=== PATIENT | female | born 1960 | race Caucasian/White ===

== ENCOUNTER → 2017-05-31 | Outpatient (CLI) | payer OTHER ==
--- NOTE | 2017-05-31 14:19 | CTL ---
EXAMINATION TYPE: CT Low Dose Lung DATE OF EXAM ORDERED: 05/31/2017 HISTORY: 57-year-old female personal history of tobacco use. Lung cancer screening CT DLP: [address] CTDI: 3.1 mGy Automated exposure control for dose reduction was used. SCREENING VISIT: Baseline COMPARISON: None TECHNIQUE: Low dose computed tomography scan was performed through the chest at 1 mm thick sections a nd reconstructed images in the coronal plane at 1 mm thick sections. Additional sagittal reconstructi ons. CT DIAGNOSTIC QUALITY: Satisfactory FINDINGS: Heart is normal size without pericardial effusion. Aorta is normal caliber with conventional arch vessel branching anatomy. Calcified subcarinal and left hilar lymph nodes compatible with prior granulomatous disease. No thora cic lymphadenopathy by CT size criteria. Mild diffuse bronchial wall thickening. No consolidation or pleural effusion. Calcified granuloma peripheral left midlung. No suspicious pulmonary nodule or mass. Strandy atelecta sis or scarring at the inferior lingula. Visualized upper abdomen show some calcified granulomas in the spleen. Bones: No osseous destructive process. IMPRESSION: 1. Lung RADS 1 - negative; no suspicious pulmonary nodules. 2. Prior granulomatous disease. 3. Mild diffuse bronchial wall thickening suggests bronchitis or chronic asthma. RECOMMENDATIONS: 1. Continue with annual LDCT lung cancer screening. 2. Smoking cessation.
== END | disposition home or self-care (01) ==
LOC: RADCTMAIN 13:25
PROVIDERS: ATTEND Internal Medicine Hematology & Oncology
DX: Z12.2 Encounter for screening for malignant neoplasm of respiratory organs (principal); Z87.891 Personal history of nicotine dependence

== ENCOUNTER → 2018-02-26 | Outpatient (CLI) | payer OTHER ==
[2018-02-26 13:50] LABS: Albumin 4.2 g/dL (3.5-5.0); Bilirubin, Delta 0.2 mg/dL (0.0-0.2); Bilirubin,Unconjugated 0.3 mg/dL (0.0-1.1); Total Bilirubin 0.5 mg/dL (0.2-1.3)
== END ==
LOC: LABWHC1 12:10
PROVIDERS: ATTEND Internal Medicine Cardiovascular Disease
DX: E78.5 Hyperlipidemia, unspecified (principal)
CPT/HCPCS: 36415; 80061; 80076

== ENCOUNTER → 2020-11-16 | Outpatient (CLI) | payer OTHER ==
--- NOTE | 2020-11-16 15:31 | XR ---
EXAMINATION TYPE: XR cervical spine comp DATE OF EXAM: 11/16/2020 COMPARISON: NONE HISTORY: Pain TECHNIQUE: Four views are submitted. FINDINGS: The odontoid is intact. There are no compression deformities. The prevertebral soft tissue structur es are within normal limits. Diffuse osteopenia. Facet arthropathy seen in the degenerative change C 5-C6. Alignment is only demonstrated to C5-C6. Soft tissue artifact obscures remaining portion. IMPRESSION: 1. Limited exam as discussed above demonstrates degenerative change C5-C6..
--- NOTE | 2020-11-16 15:34 | XR ---
EXAMINATION TYPE: XR shoulder complete LT DATE OF EXAM: 11/16/2020 COMPARISON: NONE HISTORY: Pain TECHNIQUE: Three views are submitted. FINDINGS: The osseous structures are intact. There is no acute fracture or dislocation. AC joint arthropathy. Calcified nodule in the left upper lobe. Calcified lymph nodes suspected in the left hilum. IMPRESSION: 1. AC joint arthropathy. 2. Left upper lobe granuloma with suspected left hilar lymph nodes.
== END | disposition home or self-care (01) ==
LOC: RADXRMAIN 14:59
PROVIDERS: ATTEND Family Medicine
DX: M13.812 Other specified arthritis, left shoulder (principal); M50.322 Other cervical disc degeneration at C5-C6 level
CPT/HCPCS: 72050

== ENCOUNTER → 2021-01-10 | Outpatient (CLI) | payer OTHER ==
--- NOTE | 2021-01-12 21:52 | CT ---
EXAMINATION TYPE: CT chest w con DATE OF EXAM: 01/10/2021 COMPARISON: 05/31/2017 HISTORY: 60-year-old female abnormal CXR TECHNIQUE: Contiguous axial scanning of the chest after the administration of 100 mL of Isovue 300. Coronal/sagittal reconstructions performed. CT DLP: 637.4mGycm. Automatic exposure control utilized for a dose reduction. FINDINGS: Heart normal size without pericardial effusion. Aorta normal caliber with conventional arch vessel branching anatomy. Calcified left hilar, subcarinal, and AP window lymph nodes compatible with prior granulomatous disea se. Additional nonenlarged mediastinal lymph nodes are present. No thoracic lymphadenopathy by CT siz e criteria. Calcified granuloma periphery of the left midlung. Mild centrilobular emphysema.. 6 mm subpleural nodularity posterior left upper lobe is unchanged. Stable patchy left inferior lingular scarring and some strandy atelectasis at the right base. No consolidation or pleural effusion. Visualized upper abdomen shows an inferior hilar splenule and a couple calcified granulomas in the sp carmela. Hypodense 2.2 cm cortical lesion lower pole left kidney suggestive of a cyst. Bones: No osseous destructive process. IMPRESSION: 1. COPD with mild emphysema. Evidence of prior granulomatous disease. 2. Calcified granuloma periphery of the left midlung. No new/suspicious pulmonary nodules are seen.
== END | disposition home or self-care (01) ==
LOC: RADCTMAIN 14:17
PROVIDERS: ATTEND Family Medicine
DX: J43.9 Emphysema, unspecified (principal); J84.10 Pulmonary fibrosis, unspecified
CPT/HCPCS: 71260; Q9967

== ENCOUNTER 2021-08-13 12:23 | Emergency (ER) | payer OTHER ==
[2021-08-13] MEDS ORDERED: HYDROcodone/APAP 5-325MG 1 EACH TAB PO STA (12:36)
--- NOTE | 2021-08-13 12:44 | ED ---
Lower Extremity Injury HPI - General Stated Complaint: ankle injury Time Seen by Provider: 08/13/21 12:33 Source: patient, EMS Mode of arrival: EMS - History of Present Illness Initial Comments: 61-year-old female patient presented for evaluation of left ankle pain and swelling. States she slipped and fell on ice last night. States she twisted her ankle and heard a "pop". States she did rest, ice, elevate through the night but when she woke up today her ankle is very swollen and bruised. States she is unable to bear weight. She denies hitting her head or losing consciousness during the fall. Denies any other injuries. Denies numbness or tingling to the foot. Denies previous injury to this ankle. Denies any knee pain. Patient denies any headache, chest pain, shortness of breath, dizziness, weakness, abdominal pain, nausea, vomiting, or difficulties with bowel movements or urination. - Related Data Home Medications Medication Instructions Recorded Confirmed HYDROcodone/APAP 10-325MG [[place] 1 tab PO Q4HR PRN 12/13/15 12/14/15 10-325] Lisinopril [Prinivil] 10 mg PO DAILY 12/13/15 12/14/15 amLODIPine [Norvasc] 10 mg PO DAILY 12/13/15 12/14/15 predniSONE See Taper PO DAILY 12/13/15 12/14/15 Albuterol Inhaler (Mhu) [Ventolin 2 puff INHALATION RT-Q6H PRN 12/14/15 12/14/15 Hfa Inhaler (Mhu)] Albuterol Nebulized [Ventolin 2.5 mg INHALATION RT-Q6H PRN 12/14/15 12/14/15 Nebulized] Ipratropium [place] [Atrovent Hfa] 2 puff INHALATION QID PRN 12/14/15 12/14/15 Montelukast [Singulair] 10 mg PO HS 12/14/15 12/14/15 Diltiazem Cd [Cardizem CD] 240 mg PO HS 12/15/15 12/15/15 Previous Rx's Medication Instructions Recorded ALPRAZolam [Xanax] 1 mg PO Q6H PRN #30 tablet 12/17/15 Azithromycin [Zithromax] 500 mg PO DAILY #3 tab 12/17/15 Nicotine 14Mg/24Hr Patch [Habitrol] 1 patch TRANSDERM DAILY #14 patch 12/17/15 predniSONE 10 mg PO DAILY #30 tab 12/17/15 Ibuprofen [Motrin] 600 mg PO Q8HR PRN #30 tab 08/13/21 Allergies Allergy/AdvReac Type Severity Reaction Status Date / Time sulfamethoxazole Allergy Unknown Verified 12/13/15 22:32 [From Bactrim] trimethoprim [From Bactrim] Allergy Unknown Verified 12/13/15 22:32 furosemide [From Lasix] AdvReac MUSCLE Verified 12/13/15 22:51 SPASMS Review of Systems ROS Statement: Those systems with pertinent positive or pertinent negative responses have been documented in the HPI. ROS Other: All systems not noted in ROS Statement are negative. Past Medical History Past Medical History: COPD, Hypertension Additional Past Medical History / Comment(s): LEFT ARM LIPOMA History of Any Multi-Drug Resistant Organisms: None Reported Additional Past Surgical History / Comment(s): WISDOM TEETH, Past Anesthesia/Blood Transfusion Reactions: No Reported Reaction Additional Past Anesthesia/Blood Transfusion Reaction / Comment(s): STATES "HEART WAS BEATING VERY FAST AND ALMOST HAD PANIC ATTACK" Past Psychological History: Anxiety Smoking Status: Former smoker Past Alcohol Use History: None Reported Past Drug Use History: None Reported General Exam General appearance: alert, in no apparent distress, other (This well-developed, well-nourished adult female patient in no acute distress.) Respiratory exam: Present: normal lung sounds bilaterally. Absent: respiratory distress, wheezes, rales, rhonchi, stridor Cardiovascular Exam: Present: regular rate, normal rhythm, normal heart sounds. Absent: systolic murmur, diastolic murmur, rubs, gallop, clicks GI/Abdominal exam: Present: soft, normal bowel sounds. Absent: distended, tenderness, guarding, rebound, rigid Extremities exam: Present: tenderness (Medial and lateral malleolus), normal capillary refill, other (There is soft tissue swelling over the medial and lateral malleolus. There is ecchymosis noted over the medial lateral malleolus. Skin to the foot is pink, warm, dry. Cap refill less than 3 seconds. Pedal and posttibial pulses 2+. No proximal tib-fib tenderness.). Absent: normal inspection, full ROM (Diminished due to increased pain with movement), pedal edema, joint swelling, calf tenderness Neurological exam: Present: alert, oriented X3, CN II-XII intact Psychiatric exam: Present: normal affect, normal mood Skin exam: Present: warm, dry, intact, normal color. Absent: rash Course Vital Signs 08/13/21 08/13/21 12:37 14:26 Temperature 98.3 F Pulse Rate 95 80 Respiratory 16 16 Rate Blood Pressure 125/83 126/72 O2 Sat by Pulse 96 96 Oximetry Procedures - Orthopedic Splinting/Casting Injury #1 Side: left Lower Extremity Injury Location: short leg, ankle Lower Extremity Immobilizer: posterior splint, stirrup splint, Norbert wrap, synthetic pre-padded splint Medical Decision Making - Medical Decision Making 61-year-old female patient presents to the emergency department today for evaluation of left ankle pain after soap and fall last night. Physical examination did reveal soft tissue swelling and ecchymosis to the bilateral malleolus on the left ankle. Neurovascular status is intact. X-ray was obtained and did reveal a tiny avulsion fracture to the right distal tibia and fracture to the distal fibula. She is placed in a splint. She does have a walker at home and refused crutches. She will be discharged follow up with referral specialist for further evaluation as soon as possible. Return parameters were discussed in detail. She verbalizes understanding and agrees with this plan. My attending is Dr. Perkins. - Radiology Data Radiology results: report reviewed, image reviewed 3 views of the left ankle are obtained. Report was reviewed in its entirety. Impression by Dr. Kaur shows moderate soft tissue swelling with tiny avulsion fracture of the medial malleolus and oblique mildly displaced fracture of the distal fluid by mouth. Intact ankle mortise. Disposition Clinical Impression: Closed fracture of left distal tibia, Closed fracture of left distal fibula Disposition: HOME SELF-CARE Condition: Good Instructions (If sedation given, give patient instructions): Ankle Fracture (ED), Splint Care (ED) Additional Instructions: Rest, ice, elevate the left ankle. Remain nonweightbearing until follow-up with orthopedics. Use crutches or walker. Call orthopedics for appointment on Sunday. Return for any new, worsening, or concerning symptoms. Prescriptions: Ibuprofen [Motrin] 600 mg PO Q8HR PRN #30 tab PRN Reason: Pain Is patient prescribed a controlled substance at d/c from ED?: No Referrals: Chyna Harvey MD [Primary Care Provider] - 1-2 days Ron Forte MD [STAFF PHYSICIAN] - 1-2 days Time of Disposition: 14:04
[2021-08-13 12:48] VITALS: RESP 16; TEMP 98.3
--- NOTE | 2021-08-13 13:06 | XR ---
Left ankle HISTORY: Pain following trauma. COMPARISON: None TECHNIQUE: 3 views left ankle were obtained. FINDINGS: There is moderate soft tissue swelling over both the medial and lateral malleoli. There is a tiny avulsion fracture of the distal aspect of the medial malleolus and oblique minimally displaced fracture of the distal fibula below the level of the ankle mortise. The ankle mortise is in tact. IMPRESSION: Moderate soft tissue swelling with tiny avulsion fracture the medial malleolus and an oblique mildly displaced fracture of the distal fibula. Intact ankle mortise.
[2021-08-13] MEDS ORDERED: IBUPROFEN 600 MG STARTER PACK 4 TAB BTL PO STA (14:03)
[2021-08-13] MEDS ORDERED: ACET/COD 300 MG/30 MG STARTER PACK 6 TAB BTL PO STA (14:03)
[2021-08-13 14:31] VITALS: BP 126/72; PULSE 80
== END 2021-08-13 14:37 | disposition home or self-care (01) ==
LOC: EC 12:23
DX: S82.252A Displaced comminuted fracture of shaft of left tibia, initial encounter for closed fracture (principal); S82.402A Unspecified fracture of shaft of left fibula, initial encounter for closed fracture; I10 Essential (primary) hypertension; J44.9 Chronic obstructive pulmonary disease, unspecified; Z88.2 Allergy status to sulfonamides; Z88.8 Allergy status to other drugs, medicaments and biological substances; Z87.891 Personal history of nicotine dependence; Z79.899 Other long term (current) drug therapy; W00.0XXA Fall on same level due to ice and snow, initial encounter; Y92.009 Unspecified place in unspecified non-institutional (private) residence as the place of occurrence of the external cause
CPT/HCPCS: 99283

== ENCOUNTER → 2022-10-16 | Outpatient (CLI) | payer OTHER ==
--- NOTE | 2022-10-16 17:02 | BD ---
EXAMINATION TYPE: Axial Bone Density DATE OF EXAM: 10/16/2022 CLINICAL HISTORY: 62 years old Female. ICD-10 CODE: Z13.820 SCREENING FOR OSTEOPOROSIS, Z78.0 Height: 5 ft 2 in Weight: 188 FRAX RISK QUESTIONS: Alcohol (3 or more units per day): no Family History (Parent hip fracture): no Glucocorticoids (More than 3mos): no (Ex: prednisone, prednisolone, methylprednisolone, dexamethasone, and hydrocortisone). History of Fracture in Adulthood: yes Secondary Osteoporosis: 1. Type 1 Diabetes: no 2. Hyperthyroidism: no 3. Menopause before 45: no 4. Malnutrition: no 5. Chronic liver disease: no Rheumatoid Arthritis: no Current Tobacco Use: no RISK FACTORS HISTORY OF: Surgery to Spine/Hip(right/left)/Wrist (right/left): no Family History of Osteoporosis: no Active: yes Diet low in dairy products/other sources of calcium: no Postmenopausal woman: yes Take estrogen and/or progesterone medications: no Lost more than 2 inches in height since high school: no Frequent falls: no Poor Health: copd on o2 Hyperparathyroidism: no Adrenal Insufficiency: no MEDICATIONS: Additional Medications: Lipitor, blood pressure meds, Vicodin, xanax, lisinopril, singulair, Additional History: EXAM MEASUREMENTS: Bone mineral densitometry was performed using the [email or web address] System. Bone mineral density as measured about the Lumbar spine is: ----- L1-L4(G/cm2): 0.779 T Score Values are as follows: ----- L1: -2.6 ----- L2: -2.5 ----- L3: -4.4 ----- L4: -3.9 ----- L1-L4: -3.3 Z Score Values are as follows: ----- L1: -1.9 ----- L2: -1.8 ----- L3: -3.7 ----- L4: -3.1 ----- L1-L4: -2.6 baseline Bone mineral density about the R hip (g/cm2): 0.737 Bone mineral density about the L hip (g/cm2): 0.830 T Score values are as follows: -----R Neck: -2.2 -----L Neck: -1.5 -----R Total: -1.3 -----L Total: -0.7 Z Score values are as follows: -----R Neck: -1.3 -----L Neck: -0.6 -----R Total: -0.8 -----L Total: -0.1 baseline FRAX%s: The graph provided illustrates a 17.0 % chance for a major osteoporotic fx and a 2.6 % chance for the hips probability for fx in 10 years time. IMPRESSION: Osteopenia (T Score between -2.5 and -1). There is slightly increased risk of fracture and the patient may be considered for treatment. Re-Screen 2-5 years. NOTE: T-SCORE=SD OF THE YOUNG ADULT MEAN.
--- NOTE | 2022-10-17 19:35 | MM ---
Reason for Exam: Screening (asymptomatic). Baseline mammogram. Patient History: Menarche at age 16. First Full-Term at age 21. Postmenopausal. Patient has history of breast feeding. Risk Values: Ying 5 year model risk: 1.2%. NCI Lifetime model risk: 5.7%. Prior Study Comparison: Patient's first Mammogram. Tissue Density: There are scattered fibroglandular densities. Findings: Analyzed By CAD. Asymmetric density lateral aspect of the right breast middle to posterior depth shows no clear correlate on the MLO view. However, it is incompletely disperses on 3-D images. Further evaluation recommended. No suspicious microcalcification or other discrete abnormality is seen. Overall Assessment: Incomplete: need additional imaging evaluation, BI-RAD 0 Management: Special View Mammogram of the right breast. Including spot 3-D CC, 3-D CC rolled medial, and 3-D ML views. Targeted right breast ultrasound if any persisting abnormality. [facility] will attempt to contact patient to return for supplemental views and ultrasound if indicated. Electronically signed and approved by: Neetu Barrett M.D. Radiologist
== END | disposition home or self-care (01) ==
LOC: RADMAMWWP 14:18
PROVIDERS: ATTEND Family Medicine
DX: Z12.31 Encounter for screening mammogram for malignant neoplasm of breast (principal); Z13.820 Encounter for screening for osteoporosis; M81.0 Age-related osteoporosis without current pathological fracture; M85.89 Other specified disorders of bone density and structure, multiple sites; Z78.0 Asymptomatic menopausal state
CPT/HCPCS: 77063; 77067; 77080

== ENCOUNTER 2022-10-23 13:16 | Day surgery (SDC) | payer OTHER ==
[2022-10-18 16:21] VITALS: BMI 34.2
[~2022-10-23 13:16] MED LIST: LACTATED RINGERS 1,000 ML IV SCH; LIDOCAINE 1% (10MG/ML) FOR IV START INTRADERMA PRN
[2022-10-23 13:43] VITALS: RESP 18; TEMP 97.4
[2022-10-23] MEDS ORDERED: PROPOFOL 10 MG/ML 50 ML VIAL IV ONE (14:22)
--- NOTE | 2022-10-23 14:27 | P.GSHP ---
History of Present Illness H&P Date: 10/23/22 Chief Complaint: Screening colonoscopy This a 62-year-old female who presents today for screening colonoscopy. Patient denies a significant GI complaints. Past Medical History Past Medical History: COPD, Hypertension Additional Past Medical History / Comment(s): O2 2L/NC- ATC. , CHANGE IN BOWEL HABITS, BLOOD IN URINE History of Any Multi-Drug Resistant Organisms: None Reported Additional Past Surgical History / Comment(s): WISDOM TEETH, COLONOSCOPY, Past Anesthesia/Blood Transfusion Reactions: No Reported Reaction Additional Past Anesthesia/Blood Transfusion Reaction / Comment(s): STATES "HEART WAS BEATING VERY FAST AND ALMOST HAD PANIC ATTACK" Smoking Status: Former smoker - Past Family History Brother(s) Family Medical History: Cancer Medications and Allergies Home Medications Medication Instructions Recorded Confirmed Type HYDROcodone/APAP 10-325MG [[place] 1 tab PO Q4HR PRN 12/13/15 10/23/22 History 10-325] Albuterol Inhaler [Ventolin Hfa 2 puff INHALATION RT-Q6H PRN 12/14/15 10/23/22 History Inhaler] Albuterol Nebulized [Ventolin 2.5 mg INHALATION RT-Q6H PRN 12/14/15 10/23/22 History Nebulized] Ipratropium [place] [Atrovent Hfa] 2 puff INHALATION QID PRN 12/14/15 10/23/22 History Montelukast [Singulair] 10 mg PO HS 12/14/15 10/23/22 History Diltiazem Cd [Cardizem CD] 240 mg PO DAILY 12/15/15 10/23/22 History Nicotine 14Mg/24Hr Patch [Habitrol] 1 patch TRANSDERM DAILY #14 patch 12/17/15 10/23/22 Rx ALPRAZolam [Xanax] 0.5 mg PO HS PRN 10/18/22 10/23/22 History lisinopriL [Prinivil] 20 mg PO DAILY 10/18/22 10/23/22 History Allergies Allergy/AdvReac Type Severity Reaction Status Date / Time sulfamethoxazole Allergy Unknown Verified 10/23/22 13:39 [From Bactrim] trimethoprim [From Bactrim] Allergy Unknown Verified 10/23/22 13:39 furosemide [From Lasix] AdvReac MUSCLE Verified 10/23/22 13:39 SPASMS Surgical - Exam Vital Signs Temp Pulse Resp BP Pulse Ox 97.4 F L 99 18 169/84 95 10/23/22 13:41 10/23/22 13:41 10/23/22 13:41 10/23/22 13:41 10/23/22 13:41 - General well developed, well nourished, no distress - Eyes PERRL - ENT normal pinna - Neck no masses - Respiratory normal expansion - Cardiovascular Rhythm: regular - Abdomen Abdomen: soft, non tender Assessment and Plan Assessment: We'll perform screening colonoscopy
--- NOTE | 2022-10-23 14:53 | P.OP ---
Date of Procedure: 10/23/22 Preoperative Diagnosis: Screening colonoscopy Postoperative Diagnosis: Diverticulosis Rectal polyp Procedure(s) Performed: Colonoscopy Anesthesia: MAC Surgeon: Azam La Pathology: none sent Condition: stable Disposition: PACU Description of Procedure: The patient's placed on the ostomy table in the lateral position. She received IV sedation. Digital rectal exam is performed which revealed no abnormalities. The flexible colonoscope was then placed patient anus and passed throughout the colon. Scope then passed into the ascending colon secondary to tortuosity of the colon. Several times made to maneuver the colonoscope was impossible. The point scope withdrawn. The hepatic flexure appeared normal. The transverse colon appeared normal. In the descending and; there is mild diverticular changes. Scope was brought back the rectum this muscle polyp seen this removed with the cold forcep. Scope withdrawn for patient.
[2022-10-23] MEDS ORDERED: LABETALOL 5 MG/ML VIAL MDV IV ONE (15:11)
[2022-10-23 15:29] VITALS: BP 134/87; PULSE 82
== END 2022-10-23 15:30 | disposition home or self-care (01) ==
LOC: ORWHC2ENDO 13:16
PROVIDERS: ATTEND Surgery
DX: Z12.11 Encounter for screening for malignant neoplasm of colon (principal); K62.1 Rectal polyp; K57.30 Diverticulosis of large intestine without perforation or abscess without bleeding; J44.9 Chronic obstructive pulmonary disease, unspecified; I10 Essential (primary) hypertension; Z98.890 Other specified postprocedural states; Z87.891 Personal history of nicotine dependence; Z79.899 Other long term (current) drug therapy
CPT/HCPCS: 88305; 45380; J2704

== ENCOUNTER → 2022-10-25 | Outpatient (CLI) | payer OTHER ==
--- NOTE | 2022-10-25 10:55 | MM ---
Reason for Exam: Additional evaluation requested from abnormal screening. Last screening mammogram was performed less than 1 month ago. Patient History: Menarche at age 16. First Full-Term at age 21. Postmenopausal. Patient has history of breast feeding. Risk Values: Ying 5 year model risk: 1.2%. NCI Lifetime model risk: 5.7%. Prior Study Comparison: 10/16/2022 Bilateral MG 3D screening mammo w/cad, [facility]. Tissue Density: Right: The breast tissue is almost entirely fat. Findings: Analyzed By CAD. Right upper outer focal asymmetry persists measuring 7 mm approximately 11-12 cm from the nipple. Overall Assessment: Incomplete: need additional imaging evaluation, BI-RAD 0 Management: Diagnostic Breast Ultrasound of the right breast. Results were given to the patient verbally at the time of exam. Patient should continue monthly self-breast exams. A clinical breast exam by your physician is recommended on an annual basis. This exam should not preclude additional follow-up of suspicious palpable abnormalities. Note on Ying scores and lifetime risk: 1. A Ying score greater than 3% is considered moderate risk. If this is the case, consider specialist referral to assess eligibility for a risk reducing agent. 2. If overall lifetime risk for the development of breast cancer is 20% or higher, the patient may qualify for future screening with alternating mammogram and breast MRI. Electronically signed and approved by: Sai Rowland DO
--- NOTE | 2022-10-25 11:24 | USB ---
Reason for Exam: Additional evaluation requested from abnormal screening. Patient History: Menarche at age 16. First Full-Term at age 21. Postmenopausal. Patient has history of breast feeding. Risk Values: Ying 5 year model risk: 1.2%. NCI Lifetime model risk: 5.7%. Technique: Method: Targeted. Prior Study Comparison: 10/16/2022 Bilateral MG 3D screening mammo w/cad, [facility]. Findings: The upper outer quadrant of the right breast, the axilla of the right breast and the retroareolar of the right breast were scanned. Targeted ultrasound 10:00 position right breast 12 cm distance from nipple shows a by 5 x 6 mm oval irregular shape mass with circumscribed and angular margins that is parallel in orientation without vascularity and no significant posterior acoustic features. Somewhat irregular appearance on mammogram and ultrasound is concerning. Solid mass is not entirely excluded. Overall Assessment: Suspicious, BI-RAD 4 Management: Ultrasound Core Biopsy of the right breast. Tissue sampling advised. Results were given to the patient verbally at the time of exam. Electronically signed and approved by: Will Weiss M.D.
== END | disposition home or self-care (01) ==
LOC: RADMAMWWP 10:18
PROVIDERS: ATTEND Family Medicine
DX: N63.11 Unspecified lump in the right breast, upper outer quadrant (principal); N64.89 Other specified disorders of breast; Z78.0 Asymptomatic menopausal state
CPT/HCPCS: 77065; 76642; G0279; 77061

== ENCOUNTER → 2022-10-25 | Outpatient (CLI) | payer OTHER ==
--- NOTE | 2022-10-25 12:54 | CT ---
EXAMINATION TYPE: CT abdomen pelvis wo con DATE OF EXAM: 10/25/2022 HISTORY: RLQ pain CT DLP: 1181 mGycm. Automated Exposure Control for Dose Reduction was Utilized. TECHNIQUE: CT scan of the abdomen and pelvis is performed without oral or IV contrast. COMPARISON: NONE FINDINGS: Within the limitations of a non-contrast study, the following observations are made. LUNG BASES: Focal mild bilateral lower lung linear scarring and/or atelectasis. LIVER/GB: Liver is diffusely low dense consistent with fatty infiltrative hepatocellular disease. PANCREAS: No significant abnormality is seen. SPLEEN: Incidental 1.2 cm splenule axial image 42. ADRENALS: No significant abnormality is seen. KIDNEYS: Single 2 mm lower pole left renal calculus coronal image 67. There is adjacent to 0.3 cm thi n-walled cyst axial image 68. No left-sided hydronephrosis. Single 2 to 3 mm right renal calculus coronal image 66. There is additional larger 10 mm calculus in the right renal pelvis coronal image 64 with mild pelvic fullness without significant calyceal dilata tion. No distal hydroureter or additional ureteral calculi No intraluminal calculi in the bladder. BOWEL: Normal-appearing appendix. A few scattered colonic diverticula. No CT evidence for acute diver ticulitis. No suspicious small or large bowel dilatation. GENITAL ORGANS: Anteverted uterus with lobulated posterior contour suggesting fibroid sagittal image 88. Partially exophytic small calcified fibroid anteriorly sagittal image 88 also noted. LYMPH NODES: No greater than 1cm abdominal or pelvic lymph nodes are appreciated. OSSEOUS STRUCTURES: No significant abnormality is seen. OTHER: Mild to moderate calcified plaque of the aorta extends into branch vessels. Small fat-containi ng left inguinal hernia. IMPRESSION: There is 10 mm renal calculus in the right renal pelvis with mild right renal pelvic full ness. Advise urology referral.
== END | disposition home or self-care (01) ==
LOC: RADCTMAIN 11:35
PROVIDERS: ATTEND Family Medicine
DX: N20.0 Calculus of kidney (principal)
CPT/HCPCS: 74176

== ENCOUNTER → 2022-11-08 | Day surgery (SDC) | payer OTHER ==
--- NOTE | 2022-11-14 08:53 | MM ---
Reason for Exam: Post Procedure Mammogram. Last screening mammogram was performed less than 1 month ago. Patient History: Menarche at age 16. First Full-Term at age 21. Postmenopausal. Patient has history of breast feeding. Risk Values: Ying 5 year model risk: 1.2%. NCI Lifetime model risk: 5.7%. Prior Study Comparison: 10/16/2022 Bilateral MG 3D screening mammo w/cad, [facility]. 10/25/2022 Right US breast workup limited RT, [facility]. 10/25/2022 Right MG 3D work up w/cad RT, [facility]. Tissue Density: Right: There are scattered fibroglandular densities. Pathology Description: Location: 10 o'clock. Marker Left Behind. Needle Type: Mammotome Cores: 3 Gauge: 13 The procedure of ultrasound guided core biopsy was explained to the patient. Benefits, alternatives, and risks were discussed. An informed consent was then obtained. The patient was placed in supine positioning for imaging and for the procedure. The overlying skin was prepped and draped in usual sterile fashion. Lidocaine was used as anesthetic into the skin and subcutaneous tissue up to area of concern in the right breast. Under ultrasound guidance, a 12-gauge vacuum assisted biopsy gun device was used to obtain 3 core samples. Following this, a biopsy clip was left in lesion. The patient tolerated the procedure well without any immediate complication. The patient was kept in the radiology department for short stay after the procedure and then discharged home in stable condition. Postprocedure mammogram: The patient was transferred to mammography for physician ordered post procedure mammogram for clip placement verification. Postprocedure mammogram demonstrates biopsy clip to be in appropriate position. Impression: Successful, uncomplicated ultrasound guided core biopsy of area of concern in the right breast, full pathology results to follow. Pathology Results: Result: Benign, Fibroadenoma. RIGHT BREAST, TEN O'CLOCK, ULTRASOUND GUIDED NEEDLE CORE BIOPSY: Fibroadenoma. Overall Assessment: Benign Assessment: MG diagnostic mammo RT wo CAD - Right: Benign, BI-RAD 2. Management: Diagnostic Breast Ultrasound of both breasts in 6 months. Electronically signed and approved by: Marlo Mcgrath D.O.
== END ==
LOC: RADUSWWP 12:41
PROVIDERS: ATTEND Family Medicine
DX: D24.1 Benign neoplasm of right breast (principal)
CPT/HCPCS: 88305; 77065; 19083; A4648

== ENCOUNTER 2022-12-31 08:31 | Observation (INO) | payer OTHER ==
[2022-12-31] MEDS ORDERED: KETOROLAC 15 MG/ML 1 ML VIAL IVP STA (08:55)
[2022-12-31] MEDS ORDERED: SODIUM CHLORIDE 0.9% 1,000 ML IV STA (08:57)
--- NOTE | 2022-12-31 09:10 | ED ---
Abdominal Pain HPI - General Chief Complaint: Abdominal Pain Stated Complaint: R side Flank Pain, N/V Time Seen by Provider: 12/31/22 08:31 Source: patient, EMS, RN notes reviewed Mode of arrival: EMS Limitations: no limitations - History of Present Illness Initial Comments: 62-year-old female diagnosed with a kidney stone approximately month ago who al so has COPD and requires oxygen who states she's had increased pain for the last week in the right lower quadrant area she states she took a Cotuit at home and did not really help is currently 7/10 in severity. He came in due to the pain she also states she's had decreased oral intake no overt fevers chills or sweats no dysuria. She is scheduled for lithotripsy on January 15. She denies any diarrhea and says some nausea. She did not take her medication this morning for her hypertension MD Complaint: flank pain - Related Data Home Medications Medication Instructions Recorded Confirmed HYDROcodone/APAP 10-325MG [Cotuit 1 tab PO Q4HR PRN 12/13/15 11/01/22 10-325] Albuterol Inhaler [Ventolin Hfa 2 puff INHALATION RT-Q6H PRN 12/14/15 11/01/22 Inhaler] Albuterol Nebulized [Ventolin 2.5 mg INHALATION RT-Q6H PRN 12/14/15 11/01/22 Nebulized] Ipratropium [place] [Atrovent Hfa] 2 puff INHALATION QID PRN 12/14/15 11/01/22 Montelukast [Singulair] 10 mg PO HS 12/14/15 11/01/22 Diltiazem Cd [Cardizem CD] 240 mg PO DAILY 12/15/15 11/01/22 ALPRAZolam [Xanax] 0.5 mg PO HS PRN 10/18/22 11/01/22 lisinopriL [Prinivil] 20 mg PO DAILY 10/18/22 11/01/22 Previous Rx's Medication Instructions Recorded Nicotine 14Mg/24Hr Patch [Habitrol] 1 patch TRANSDERM DAILY #14 patch 12/17/15 Allergies Allergy/AdvReac Type Severity Reaction Status Date / Time sulfamethoxazole Allergy Unknown Verified 12/31/22 08:51 [From Bactrim] trimethoprim [From Bactrim] Allergy Unknown Verified 12/31/22 08:51 furosemide [From Lasix] AdvReac MUSCLE Verified 12/31/22 08:51 SPASMS Review of Systems ROS Statement: Those systems with pertinent positive or pertinent negative responses have been documented in the HPI. ROS Other: All systems not noted in ROS Statement are negative. Past Medical History Past Medical History: COPD, Hypertension Additional Past Medical History / Comment(s): LEFT ARM LIPOMA, right side kidney stone History of Any Multi-Drug Resistant Organisms: None Reported Additional Past Surgical History / Comment(s): WISDOM TEETH, Past Anesthesia/Blood Transfusion Reactions: No Reported Reaction Additional Past Anesthesia/Blood Transfusion Reaction / Comment(s): STATES "HEART WAS BEATING VERY FAST AND ALMOST HAD PANIC ATTACK" Past Psychological History: Anxiety Smoking Status: Former smoker Past Alcohol Use History: None Reported Past Drug Use History: Marijuana - Past Family History Brother(s) Family Medical History: Cancer General Exam - General Exam Comments Initial Comments: This is a well-developed well-nourished awake alert oriented 4 female Limitations: no limitations General appearance: alert, anxious Head exam: Present: atraumatic, normocephalic, normal inspection Eye exam: Present: normal appearance, PERRL, EOMI. Absent: scleral icterus, conjunctival injection, periorbital swelling ENT exam: Present: mucous membranes dry Neck exam: Present: normal inspection. Absent: tenderness, meningismus, lymphadenopathy Respiratory exam: Present: normal lung sounds bilaterally. Absent: respiratory distress, wheezes, rales, rhonchi, stridor Cardiovascular Exam: Present: regular rate, normal rhythm, normal heart sounds. Absent: systolic murmur, diastolic murmur, rubs, gallop, clicks GI/Abdominal exam: Present: soft, tenderness (Right lower quadrant tenderness palpation without definitive guarding or rebound tenderness), normal bowel sounds. Absent: distended, guarding, rebound, rigid Extremities exam: Present: normal inspection, full ROM, normal capillary refill. Absent: tenderness, pedal edema, joint swelling, calf tenderness Back exam: Present: normal inspection Neurological exam: Present: alert, oriented X3, CN II-XII intact Psychiatric exam: Present: normal affect, normal mood Skin exam: Present: warm, dry, intact, normal color. Absent: rash Course Vital Signs 07/30/23 07/30/23 07/30/23 08:41 09:53 10:42 Temperature 98.2 F Pulse Rate 85 80 65 Respiratory 18 18 20 Rate Blood Pressure 192/109 187/99 179/103 O2 Sat by Pulse 97 98 95 Oximetry 12/31/22 12:00 Temperature Pulse Rate 85 Respiratory 22 Rate Blood Pressure 178/84 O2 Sat by Pulse 95 Oximetry Medical Decision Making - Medical Decision Making Patient did have recurrent pain in the right lower quadrant I did discuss the findings with her and family members. Patient is a right ureteral lithiasis with intractable pain/ recurrent pain. I did discuss case with Dr. Butler. Patient will be admitted for IV fluids pain control and consultation by Dr. Butler. Patient will be admitted to Dr. Franco's service. He has of a history of COPD and hypertensionWas pt. sent in by a medical professional or institution (, PA, CUFF MAKER, urgent care, hospital, or [facility]...) When possible be specific @ -No Did you speak to anyone other than the patient for history (EMS, parent, family, police, friend...)? What history was obtained from this source @ -No Did you review nursing and triage notes (agree or disagree)? Why? @ -I reviewed and agree with nursing and triage notes Were old charts reviewed (outside hosp., previous admission, EMS record, old EKG, old radiological studies, urgent care reports/EKG's, [facility] records)? Report findings @ - old charts were reviewed Differential Diagnosis (chest pain, altered mental status, abdominal pain women, abdominal pain men, vaginal bleeding, weakness, fever, dyspnea, syncope, headache, dizziness, GI bleed, back pain, seizure, CVA, palpatations, mental health, musculoskeletal)? @ -Abdominal pain EKG interpreted by me (3pts min.). @ -Not done X-rays interpreted by me (1pt min.). @ -None done CT interpreted by me (1pt min.). @ -Interpreted by me 10 mm calculus at the right UPJ with mild hydronephrosis U/S interpreted by me (1pt. min.). @ -None done What testing was considered but not performed or refused? (CT, X-rays, U/S, labs)? Why? @ -None What meds were considered but not given or refused? Why? @ -None Did you discuss the management of the patient with other professionals (professionals i.e. , PA, CUFF MAKER, lab, RT, psych nurse, bilingual social worker, machine presser, teacher, community service officer coordinator, machine adjuster leader case trim)? Give summary @ -Dr. Butler and Dr. Franco Was smoking cessation discussed for >3mins.? @ -No Was critical care preformed (if so, how long)? @ -No Were there social determinants of health that impacted care today? How? (Homelessness, low income, unemployed, alcoholism, drug addiction, transportation, low edu. Level, literacy, decrease access to med. care, longterm, rehab)? @ -No Was there de-escalation of care discussed even if they declined (Discuss DNR or withdrawal of care, Hospice)? DNR status @ -No What co-morbidities impacted this encounter? (DM, HTN, Smoking, COPD, CAD, Cancer, CVA, ARF, Chemo, Hep., AIDS, mental health diagnosis, sleep apnea, morbid obesity)? @ -Hypertension, COPD Was patient admitted / discharged? Hospital course, mention meds given and route, prescriptions, significant lab abnormalities, going to OR and other perti nent info. @ -hospital course was admitted to the hospital for pain control IV hydration consultation by urology Undiagnosed new problem with uncertain prognosis? @ -No Drug Therapy requiring intensive monitoring for toxicity (Heparin, Nitro, Insulin, Cardizem)? @ -No Were any procedures done? @ -No Diagnosis/symptom? @ -Intractable abdominal pain, right ureteral lithiasis, hypertension, COPD Acute, or Chronic, or Acute on Chronic? @ -Acute on chronic Uncomplicated (without systemic symptoms) or Complicated (systemic symptoms)? @ -default] Side effects of treatment? @ -[No] Exacerbation, Progression, or Severe Exacerbation? @ -[Exacerbation] Poses a threat to life or bodily function? How? (Chest pain, [place], [place], pneumonia, PE, COPD, DKA, ARF, appy, cholecystitis, CVA, Diverticulitis, Homicidal, Suicidal, threat to staff... and all critical care pts) @ -[No] - Lab Data Result diagrams: 12/31/22 09:04 12/31/22 09:04 Lab Results 12/31/22 12/31/22 12/31/22 Range/Units 09:04 09:04 09:04 WBC 12.6 H (3.8-10.6) k/uL RBC 5.42 H (3.80-5.40) m/uL Hgb 14.4 (11.4-16.0) gm/dL Hct 44.2 (34.0-46.0) % MCV 81.5 (80.0-100.0) fL MCH 26.6 (25.0-35.0) pg MCHC 32.7 (31.0-37.0) g/dL RDW 13.6 (11.5-15.5) % Plt Count 353 (150-450) k/uL MPV 8.1 Neutrophils % 67 % Lymphocytes % 23 % Monocytes % 6 % Eosinophils % 3 % Basophils % 0 % Neutrophils # 8.5 H (1.3-7.7) k/uL Lymphocytes # 2.9 (1.0-4.8) k/uL Monocytes # 0.7 (0-1.0) k/uL Eosinophils # 0.4 (0-0.7) k/uL Basophils # 0.1 (0-0.2) k/uL Sodium 136 L (137-145) mmol/L Potassium 4.3 (3.5-5.1) mmol/L Chloride 102 (98-107) mmol/L Carbon Dioxide 28 (22-30) mmol/L Anion Gap 6 mmol/L BUN 21 H (7-17) mg/dL Creatinine 0.82 (0.52-1.04) mg/dL Est GFR (CKD-EPI)AfAm 89 (>60 ml/min/1.73 sqM) Est GFR (CKD-EPI)NonAf 77 (>60 ml/min/1.73 sqM) Glucose 104 H (74-99) mg/dL Plasma Lactic Acid Casey 0.9 (0.7-2.0) mmol/L Calcium 9.0 (8.4-10.2) mg/dL Total Bilirubin 0.4 (0.2-1.3) mg/dL AST 29 (14-36) U/L ALT 23 (4-34) U/L Alkaline Phosphatase 93 (38-126) U/L Troponin I (0.000-0.034) ng/mL Total Protein 6.8 (6.3-8.2) g/dL Albumin 3.8 (3.5-5.0) g/dL Amylase 45 (30-110) U/L Lipase 82 (23-300) U/L 12/31/22 Range/Units 09:04 WBC (3.8-10.6) k/uL RBC (3.80-5.40) m/uL Hgb (11.4-16.0) gm/dL Hct (34.0-46.0) % MCV (80.0-100.0) fL MCH (25.0-35.0) pg MCHC (31.0-37.0) g/dL RDW (11.5-15.5) % Plt Count (150-450) k/uL MPV Neutrophils % % Lymphocytes % % Monocytes % % Eosinophils % % Basophils % % Neutrophils # (1.3-7.7) k/uL Lymphocytes # (1.0-4.8) k/uL Monocytes # (0-1.0) k/uL Eosinophils # (0-0.7) k/uL Basophils # (0-0.2) k/uL Sodium (137-145) mmol/L Potassium (3.5-5.1) mmol/L Chloride (98-107) mmol/L Carbon Dioxide (22-30) mmol/L Anion Gap mmol/L BUN (7-17) mg/dL Creatinine (0.52-1.04) mg/dL Est GFR (CKD-EPI)AfAm (>60 ml/min/1.73 sqM) Est GFR (CKD-EPI)NonAf (>60 ml/min/1.73 sqM) Glucose (74-99) mg/dL Plasma Lactic Acid [place] (0.7-2.0) mmol/L Calcium (8.4-10.2) mg/dL Total Bilirubin (0.2-1.3) mg/dL AST (14-36) U/L ALT (4-34) U/L Alkaline Phosphatase (38-126) U/L Troponin I <0.012 (0.000-0.034) ng/mL Total Protein (6.3-8.2) g/dL Albumin (3.5-5.0) g/dL Amylase (30-110) U/L Lipase (23-300) U/L - Radiology Data Interpreted by me: I did interpret the imaging CT shows evidence of a 10 mm calculus at the right UPJ with mild hydronephrosis. No other significant findings Disposition Clinical Impression: Intractable abdominal pain, Kidney stone on right side, Hydronephrosis, Hypertension, COPD (chronic obstructive pulmonary disease) Disposition: ADMITTED IP TO THIS HOSP Condition: Fair Referrals: Chyna Harvey MD [Primary Care Provider] - 1-2 days Decision Date: 12/31/22 Decision Time: 13:45
[2022-12-31 09:30] LABS: Basophils # (A) 0.1 k/uL (0-0.2); Basophils % (A) 0 %; Eosinophils # (A) 0.4 k/uL (0-0.7); Eosinophils % (A) 3 %; HCT 44.2 % (34.0-46.0); HGB 14.4 gm/dL (11.4-16.0); Lymphocytes # (A) 2.9 k/uL (1.0-4.8); Lymphocytes % (A) 23 %; MCH 26.6 pg (25.0-35.0); MCHC 32.7 g/dL (31.0-37.0); MCV 81.5 fL (80.0-100.0); Mean Platelet Volume 8.1; Monocytes # (A) 0.7 k/uL (0-1.0); Monocytes % (A) 6 %; Neutrophils # (A) 8.5 k/uL (1.3-7.7); Neutrophils % (A) 67 %; Platelet Count 353 k/uL (150-450); RBC 5.42 m/uL (3.80-5.40); RDW 13.6 % (11.5-15.5); WBC 12.6 k/uL (3.8-10.6)
[2022-12-31 09:34] LABS: ALT 23 U/L (4-34); AST 29 U/L (14-36); African American GFR (CKD) 89 (>60 ml/min/1.73 sqM); Albumin 3.8 g/dL (3.5-5.0); Alkaline Phosphatase 93 U/L (38-126); Amylase 45 U/L (30-110); Anion Gap 6 mmol/L; Blood Urea Nitrogen 21 mg/dL (7-17); Carbon Dioxide 28 mmol/L (22-30); Chloride 102 mmol/L (98-107); Glucose 104 mg/dL (74-99); Lipase 82 U/L (23-300); Non-African American GFR(CKD) 77 (>60 ml/min/1.73 sqM); Potassium 4.3 mmol/L (3.5-5.1); Sodium 136 mmol/L (137-145); Total Bilirubin 0.4 mg/dL (0.2-1.3); Total Protein 6.8 g/dL (6.3-8.2)
--- NOTE | 2022-12-31 10:09 | CT ---
EXAMINATION TYPE: CT abdomen pelvis wo con CT DLP: 891.6 mGycm, Automated exposure control for dose reduction was used. DATE OF EXAM: 12/31/2022 9:46 AM COMPARISON: CT abdomen pelvis most recent from 10/25/2022 CLINICAL INDICATION:Female, 62 years old with history of abdominal pain; flank pain, hx of kidney sto ne TECHNIQUE: Axial CT of the abdomen and pelvis. Sagittal and coronal reformats were created on a [email or web address] workstation. Contrast used: mL of , (none if empty) Oral contrast used: without Oral Contrast (none if empty) FINDINGS: LOWER CHEST: Unremarkable ABDOMEN LIVER: Diffusely hypoattenuating parenchyma. GALLBLADDER AND BILE DUCTS: Unremarkable. PANCREAS: Unremarkable. SPLEEN: Unremarkable. ADRENAL GLANDS: Unremarkable. KIDNEYS AND URETERS: Mild right hydronephrosis from a 10 mm calculus at the right uteropelvic junctio n. Additional nonobstructing 3 mm calculus bilaterally. Left renal cyst. PELVIS BLADDER: Unremarkable REPRODUCTIVE: Unremarkable. ABDOMEN & PELVIS STOMACH AND BOWEL: No evidence of bowel obstruction. Scattered colonic diverticula. The appendix is n ormal. PERITONEUM/RETROPERITONEUM: No evidence of pneumoperitoneum or free fluid. VASCULATURE: No evidence of aortic aneurysm. MUSCULOSKELETAL: No acute osseous abnormalities LYMPH NODES: No gross evidence for lymphadenopathy. SOFT TISSUE/ABDOMINAL WALL: Unremarkable IMPRESSION: 1. Mild right hydronephrosis from a 10 mm calculus at the right uteropelvic junction. Additional non obstructing renal calculi bilaterally. 2. Hepatic steatosis. 3. Scattered desiccation is pancreatic parenchyma suggestive of chronic pancreatitis.
[2022-12-31] MEDS ORDERED: lisinopriL 20 MG TAB PO STA (10:55)
[2022-12-31] MEDS ORDERED: HYDROmorphone 1 MG/ML 1 ML SYRINGE IVP STA (11:29)
[2022-12-31] MEDS ORDERED: ONDANSETRON 4 MG/2 ML VIAL IVP STA (11:29)
[2022-12-31] MEDS ORDERED: NALOXONE 0.4 MG/ML 1 ML VIAL IV PRN (13:56)
[2022-12-31] MEDS ORDERED: ONDANSETRON 4 MG/2 ML VIAL IVP PRN (13:56)
[2022-12-31] MEDS ORDERED: HYDROcodone/APAP 10-325MG 1 EACH TAB PO PRN (13:58)
[2022-12-31] MEDS ORDERED: IPRATROPIUM 0.5 MG/2.5 ML NEBU INHALATION PRN (13:58)
[2022-12-31] MEDS ORDERED: ALPRAZolam 0.5 MG TAB PO PRN (13:58)
[2022-12-31] MEDS ORDERED: ALBUTEROL NEBULIZED 2.5 MG/3 ML INHALATION PRN (13:58)
[2022-12-31] MEDS: SODIUM CHLORIDE 0.9% 1,000 ML IV SCH ×2 (14:09→19:48)
[2022-12-31] MEDS: HYDROmorphone 1 MG/ML 1 ML SYRINGE IVP PRN ×2 (14:51→22:09)
[2022-12-31 15:16] LABS: Color,Urine Yellow
[2022-12-31 15:17] LABS: Appearance,Urine Clear (Clear); Bilirubin,Urine Negative (Negative); Blood,Urine Large (Negative); Glucose,Urine (UA) Negative (Negative); Ketones,Urine Negative (Negative); PH, Urine 5.5 (5.0-8.0); Protein,Urine Trace (Negative); Specific Gravity,Urine 1.025 (1.001-1.035); Urobilinogen,Urine <2.0 mg/dL (<2.0)
[2022-12-31 15:18] LABS: Bacteria,Urine Moderate /hpf; Leukocyte Esterase,Urine Moderate (Negative); Nitrite,Urine Negative (Negative); RBC,Urine 80 /hpf (0-5); Squamous Epithelial Cell,Urine 1 /hpf (0-4); WBC,Urine 2 /hpf (0-5)
--- NOTE | 2022-12-31 16:58 | XR ---
EXAMINATION TYPE: XR chest 1V portable DATE OF EXAM: 12/31/2022 4:54 PM COMPARISON: Chest radiographs from 03/03/2016, CT chest 01/10/2021 TECHNIQUE: XR chest 1V portable Portable AP radiograph of the chest. CLINICAL INDICATION:Female, 62 years old with history of copd; FINDINGS: Lungs/Pleura: There is no evidence of pleural effusion, focal consolidation, or pneumothorax. Chroni c senescent parenchymal change. Stable left midlung calcified granuloma. Mild hyperinflation. Pulmonary vascularity: Unremarkable. Heart/mediastinum: Cardiomediastinal silhouette is prominent in size. Musculoskeletal: No acute osseous pathology. IMPRESSION: 1. No acute cardiopulmonary disease/process. 2. COPD changes.
[2022-12-31] MEDS: KETOROLAC 15 MG/ML 1 ML VIAL IVP SCH (18:01)
[2022-12-31] MEDS: MONTELUKAST 10 MG TAB PO SCH (19:47)
--- NOTE | 2022-12-31 21:32 | P.GSCN ---
History of Present Illness Consult date: 12/31/22 Reason for Consult: Right renal colic Requesting physician: Wan Franco History of present illness: The patient is a 62-year-old white female with oxygen dependent COPD, who was recently diagnosed with a 1 cm right renal calculus. She has seen Dr. Chang and is scheduled to undergo ESWL on 01/22/2023. However, she now presents with intractable right flank and lower quadrant abdominal pain. Review of Systems - Constitutional Denies chills, Denies fever - Gastrointestinal Reports abdominal pain, Reports nausea, Denies vomiting - Genitourinary Genitourinary: Reports kidney stones, Denies dysuria, Denies hematuria Past Medical History Past Medical History: COPD, Hypertension Additional Past Medical History / Comment(s): LEFT ARM LIPOMA, right side kidney stone History of Any Multi-Drug Resistant Organisms: None Reported Additional Past Surgical History / Comment(s): WISDOM TEETH, Past Anesthesia/Blood Transfusion Reactions: No Reported Reaction Additional Past Anesthesia/Blood Transfusion Reaction / Comm: STATES "HEART WAS BEATING VERY FAST AND ALMOST HAD PANIC ATTACK" Past Psychological History: Anxiety Smoking Status: Former smoker Past Alcohol Use History: None Reported Past Drug Use History: Marijuana - Past Family History Brother(s) Family Medical History: Cancer Medications and Allergies Home Medications Medication Instructions Recorded Confirmed Type Montelukast [Singulair] 10 mg PO DAILY 12/14/15 12/31/22 History Diltiazem Cd [Cardizem CD] 240 mg PO DAILY 12/15/15 12/31/22 History lisinopriL [Prinivil] 20 mg PO DAILY 10/18/22 12/31/22 History Atorvastatin [Lipitor] 20 mg PO DAILY 12/31/22 12/31/22 History Budesonide/Formoterol Fumarate 2 puff INHALATION RT-BID 12/31/22 12/31/22 History [Symbicort 160-4.5 Mcg Inhaler] Ergocalciferol [Vitamin D2 (1250 1,250 mcg PO Q28D 12/31/22 12/31/22 History Mcg = 31082 Iu)] Fluticasone Propionate [Flovent 2 puff INHALATION RT-BID 12/31/22 12/31/22 History Hfa 220 mcg] Ipratropium-Albuterol Nebulize 3 ml INHALATION RT-QID 12/31/22 12/31/22 History [Duoneb 0.5 mg-3 mg/3 ml Soln] amLODIPine [Norvasc] 5 mg PO DAILY 12/31/22 12/31/22 History Allergies Allergy/AdvReac Type Severity Reaction Status Date / Time sulfamethoxazole Allergy Unknown Verified 12/31/22 17:22 [From Bactrim] trimethoprim [From Bactrim] Allergy Unknown Verified 12/31/22 17:22 furosemide [From Lasix] AdvReac MUSCLE Verified 12/31/22 17:22 SPASMS Surgical - Exam Vital Signs Temp Pulse Resp BP Pulse Ox 98.2 F 85 18 192/109 97 12/31/22 08:41 12/31/22 08:41 12/31/22 08:41 12/31/22 08:41 12/31/22 08:41 - General well developed, well nourished, no distress - Neck no masses, trachea midline - Respiratory normal respiratory effort - Abdomen Soft, non-distended, no mass. Mild right lower quadrant tenderness, no guarding or rebound. - Psychiatric oriented to time, oriented to person, oriented to place, speech is normal, memory intact Results - Labs 12/31/22 09:04 12/31/22 09:04 Abnormal Lab Results - Last 24 Hours (Table) 12/31/22 12/31/22 12/31/22 Range/Units 09:04 09:04 13:00 WBC 12.6 H (3.8-10.6) k/uL RBC 5.42 H (3.80-5.40) m/uL Neutrophils # 8.5 H (1.3-7.7) k/uL Sodium 136 L (137-145) mmol/L BUN 21 H (7-17) mg/dL Glucose 104 H (74-99) mg/dL Urine RBC 80 H (0-5) /hpf Urine Bacteria Moderate H (None) /hpf Diabetes panel 12/31/22 Range/Units 09:04 Sodium 136 L (137-145) mmol/L Potassium 4.3 (3.5-5.1) mmol/L Chloride 102 (98-107) mmol/L Carbon Dioxide 28 (22-30) mmol/L BUN 21 H (7-17) mg/dL Creatinine 0.82 (0.52-1.04) mg/dL Glucose 104 H (74-99) mg/dL Calcium 9.0 (8.4-10.2) mg/dL AST 29 (14-36) U/L ALT 23 (4-34) U/L Alkaline Phosphatase 93 (38-126) U/L Total Protein 6.8 (6.3-8.2) g/dL Albumin 3.8 (3.5-5.0) g/dL Calcium panel 12/31/22 Range/Units 09:04 Calcium 9.0 (8.4-10.2) mg/dL Albumin 3.8 (3.5-5.0) g/dL Pituitary panel 12/31/22 Range/Units 09:04 Sodium 136 L (137-145) mmol/L Potassium 4.3 (3.5-5.1) mmol/L Chloride 102 (98-107) mmol/L Carbon Dioxide 28 (22-30) mmol/L BUN 21 H (7-17) mg/dL Creatinine 0.82 (0.52-1.04) mg/dL Glucose 104 H (74-99) mg/dL Calcium 9.0 (8.4-10.2) mg/dL Adrenal panel 12/31/22 Range/Units 09:04 Sodium 136 L (137-145) mmol/L Potassium 4.3 (3.5-5.1) mmol/L Chloride 102 (98-107) mmol/L Carbon Dioxide 28 (22-30) mmol/L BUN 21 H (7-17) mg/dL Creatinine 0.82 (0.52-1.04) mg/dL Glucose 104 H (74-99) mg/dL Calcium 9.0 (8.4-10.2) mg/dL Total Bilirubin 0.4 (0.2-1.3) mg/dL AST 29 (14-36) U/L ALT 23 (4-34) U/L Alkaline Phosphatase 93 (38-126) U/L Total Protein 6.8 (6.3-8.2) g/dL Albumin 3.8 (3.5-5.0) g/dL - Imaging CT scan - abdomen: report reviewed, image reviewed Assessment and Plan Assessment: The patient's right renal calculus has migrated to the UPJ, causing mild- moderate right hydronephrosis with intractable pain. (1) Calculus of ureter Current Visit: Yes Status: Acute Code(s): N20.1 - CALCULUS OF URETER SNOMED Code(s): 63322267 (2) Hydronephrosis with renal and ureteral calculous obstruction Current Visit: Yes Status: Acute Code(s): N13.2 - HYDRONEPHROSIS WITH RENAL AND URETERAL CALCULOUS OBSTRUCTION SNOMED Code(s): 138601165 Plan: Patient is admitted for pain control. I have advised her to undergo cystoscopy with right ureteral stent insertion tomorrow to relieve obstruction, and thus pr ovide symptomatic relief until ESWL can be performed on 01/22/2023 as already scheduled. Potential risks associated with stent placement include anesthesia, infection, inability to place the stent, and ureteral injury. Given her COPD, I have suggested the stent be placed under IV sedation rather than general anesthesia, though ultimately Anesthesia will make that decision. Time with Patient: Greater than 30
--- NOTE | 2022-12-31 22:16 | HP ---
HISTORY AND PHYSICAL CHIEF COMPLAINT: Right-sided flank pain, nausea, vomiting. HISTORY OF PRESENT ILLNESS: This is a 62-year-old woman with a past medical history of urolithiasis, COPD, is complaining of severe pain from the right flank radiating anteriorly. The patient has apparently had a history of recent kidney stones, but further evaluation has been on hold because of the oxygen issues because the patient has COPD with chronic hypoxic respiratory failure. Lithotripsy had been planned on January 15. There is no history of any fever, rigors, or chills. PAST MEDICAL HISTORY: COPD, hypertension, hypoxia. Rest of the history and rest of the chart is also reviewed. HOME MEDICATIONS: Reviewed include lisinopril. Dose and rest of medications reviewed, not confirmed yet by pharmacy. ALLERGIES: Include Bactrim. FAMILY HISTORY: History of cancer in the family. SOCIAL HISTORY: Previous history of smoking. REVIEW OF SYSTEMS: Fourteen-point review is negative except as mentioned earlier. PHYSICAL EXAMINATION: VITAL SIGNS: Pulse is 98, blood pressure 140/70, respirations 20. HEENT: Conjunctivae normal. NECK: No JVD. CARDIOVASCULAR: S1, S2. RESPIRATIONS: A few scattered rhonchi. No crackles. ABDOMEN: Soft, obese, mild diffuse tenderness present on the right side. LEGS: No edema. NERVOUS SYSTEM: No focal deficits. SKIN: No ulcer, rash, or bleeding. JOINTS: No active deforming arthropathy. LABORATORY DATA: Reviewed. ASSESSMENT: 1. Acute right urolithiasis with severe pain. 2. Chronic obstructive pulmonary disease with hypoxia history. 3. Hypertension. 4. History of left arm lipoma. 5. Mild right hydronephrosis. 6. History of anxiety. 7. Remote history of nicotine dependence and obesity with body mass of 33.7. RECOMMENDATIONS AND DISCUSSION: This is a 62-year-old woman, who presented with multiple complex medical issues, we will monitor the patient closely. We recommend intensive bronchodilators. Pain management. DVT prophylaxis and closely follow with Urology. Resume home medications once they are confirmed. Further recommendations to follow. See orders for further details. I would also obtain a chest x-ray. CT abdomen showed mild right hydronephrosis. MMODL / IJN: [id number] /
[2023-01-01] MEDS: KETOROLAC 15 MG/ML 1 ML VIAL IVP SCH ×5 (00:02→23:29)
[2023-01-01] MEDS: HYDROmorphone 1 MG/ML 1 ML SYRINGE IVP PRN ×2 (03:42→08:39)
[2023-01-01] MEDS: SODIUM CHLORIDE 0.9% 1,000 ML IV SCH ×3 (06:23→21:23)
[2023-01-01] MEDS: NICOTINE 14MG/24HR PATCH TRANSDERM SCH (08:39)
[2023-01-01] MEDS: lisinopriL 20 MG TAB PO SCH (08:39)
[2023-01-01] MEDS: DILTIAZEM CD 240 MG CAP.ER.24H PO SCH (08:39)
[2023-01-01 09:53] LABS: Basophils % (A) 0 %; Eosinophils # (A) 0.2 k/uL (0-0.7); Eosinophils % (A) 2 %; HCT 41.9 % (34.0-46.0); HGB 13.3 gm/dL (11.4-16.0); Hypochromasia Slight; Lymphocytes # (A) 1.8 k/uL (1.0-4.8); Lymphocytes % (A) 20 %; MCH 26.4 pg (25.0-35.0); MCHC 31.7 g/dL (31.0-37.0); MCV 83.1 fL (80.0-100.0); Mean Platelet Volume 7.7; Monocytes # (A) 0.5 k/uL (0-1.0); Monocytes % (A) 6 %; Neutrophils # (A) 6.6 k/uL (1.3-7.7); Neutrophils % (A) 71 %; Platelet Count 307 k/uL (150-450); RBC 5.04 m/uL (3.80-5.40); RDW 13.5 % (11.5-15.5); WBC 9.3 k/uL (3.8-10.6)
[2023-01-01 10:27] LABS: ALT 20 U/L (4-34); AST 27 U/L (14-36); African American GFR (CKD) 88 (>60 ml/min/1.73 sqM); Albumin 3.6 g/dL (3.5-5.0); Alkaline Phosphatase 80 U/L (38-126); Anion Gap 6 mmol/L; Blood Urea Nitrogen 19 mg/dL (7-17); Calcium 8.3 mg/dL (8.4-10.2); Carbon Dioxide 28 mmol/L (22-30); Chloride 103 mmol/L (98-107); Glucose 92 mg/dL (74-99); Non-African American GFR(CKD) 76 (>60 ml/min/1.73 sqM); Potassium 4.6 mmol/L (3.5-5.1); Sodium 137 mmol/L (137-145); Total Bilirubin 0.5 mg/dL (0.2-1.3); Total Protein 6.4 g/dL (6.3-8.2)
--- NOTE | 2023-01-01 12:01 | P.PN ---
Subjective This is a pleasant 62 years old female with a known history of right kidney stone, she was plans to see Dr. Chang and is scheduled to undergo ESWL on 01/22/2023. However patient presents with worsening renal colic and right flank pain secondary to right kidney stones with mild hydronephrosis. Patient is followed by surgery team who recommended conservative treatment Patient currently receiving normal saline and 130 ml per hour as well as pain medication including Dilaudid when necessary. She says that her pain is down from more than 10 on admission currently down to 6. She is still getting normal saline running. Patient has no vomiting but feels nauseated. When I offered patient does not want any more pain medication or nausea medication She is hemodynamically stable. Labs reviewed, leukocytosis back to normal Urine analysis is no suspicious for infection. Because patient does not have overt signs symptoms of infection, no need for antibiotics for now. Urologist on the case and follow-up with the recommendations. Objective - Vital Signs Vital signs: Vital Signs Temp 99.5 F 01/01/23 08:38 Pulse 88 01/01/23 08:54 Resp 15 01/01/23 08:38 BP 132/74 01/01/23 08:38 Pulse Ox 97 01/01/23 08:38 FiO2 Intake & Output 12/31/22 01/01/23 01/01/23 18:59 06:59 18:59 Intake Total 658 Output Total 150 300 350 Balance 508 -300 -350 Weight 86.183 kg Intake: Oral 658 Output: Urine 150 300 350 Other: Voiding Method Toilet Toilet Toilet # Voids 1 - Exam GENERAL: The patient is alert and oriented x3, not in any acute distress. Well developed, well nourished. HEENT: Pupils are round and equally reacting to light. EOMI. No scleral icterus. No conjunctival pallor. Normocephalic, atraumatic. No pharyngeal erythema. No thyromegaly. CARDIOVASCULAR: S1 and S2 present. No murmurs, rubs, or gallops. PULMONARY: Chest is clear to auscultation, no wheezing , no crackles. -ABDOMEN: Soft, right flank tenderness, nondistended, normoactive bowel sounds. No palpable organomegaly. MUSCULOSKELETAL: No joint swelling or deformity. EXTREMITIES: No cyanosis, clubbing, or pedal edema. NEUROLOGICAL: Gross neurological examination did not reveal any focal deficits. SKIN: No rashes. no petechiae. - Labs CBC & Chem 7: 01/01/23 08:58 01/01/23 08:58 Labs: Abnormal Lab Results - Last 24 Hours (Table) 12/31/22 01/01/23 Range/Units 13:00 08:58 BUN 19 H (7-17) mg/dL Calcium 8.3 L (8.4-10.2) mg/dL Urine RBC 80 H (0-5) /hpf Urine Bacteria Moderate H (None) /hpf Assessment and Plan Assessment: Intractable abdominal pain secondary to right renal calculus with resultant mild hydronephrosis Right renal colic secondary to above Hypertension History of COPD, normoactive tissue. Plan: Continue with pain medication and aggressive hydration with normal saline with 130 mL per hour Urologist on the case Labs and medication were reviewed.. Continue same treatment. Continue with symptomatic treatment. Resume home medication. Monitor labs and vitals. DVT and GI prophylaxis. Further recommendations as per clinical course of the patient DVT prophylaxis: Subcutaneous heparin GI Prophylaxis: Pepcid PT/OT: Pending Prognosis is guarded Possible discharge in 24-8 hours
[2023-01-01] MEDS ORDERED: LACTATED RINGERS 1,000 ML IV ONE (16:16)
[2023-01-01] MEDS ORDERED: PROPOFOL 10 MG/ML 20 ML VIAL IV ONE (16:39)
[2023-01-01] MEDS ORDERED: MIDAZOLAM 2 MG/2 ML VIAL ONE (16:39)
[2023-01-01] MEDS ORDERED: LIDOCAINE 2% INJ 20 MG/ML (2 ML VIAL) ONE (16:39)
[2023-01-01] MEDS ORDERED: fentaNYL (PF) 50 MCG/ML 2 ML AMP ONE (16:39)
[2023-01-01] MEDS ORDERED: KETAMINE 10 MG/ML 20 ML VIAL ONE (16:39)
[2023-01-01] MEDS ORDERED: LIDOCAINE 2% GLYDO JELLY 6 ML APPL MISCELLANE ONE (16:39)
[2023-01-01] MEDS ORDERED: ceFAZolin 1,000 MG VIAL ONE (16:53)
[2023-01-01] MEDS ORDERED: SODIUM CHLORIDE 0.9% 100 ML BAG ONE (16:53)
[2023-01-01] MEDS ORDERED: SODIUM CHLORIDE 0.9% 100 ML with ceFAZolin 2,000 MG IV ONE ×2 (16:59)
--- NOTE | 2023-01-01 17:49 | P.OP ---
Date of Procedure: 01/01/23 Preoperative Diagnosis: Right hydronephrosis secondary to right ureteral calculus Postoperative Diagnosis: Same Procedure(s) Performed: Cystoscopy, right ureteroscopy, right ureteral stent insertion Anesthesia: MAC Surgeon: Speedy Butler Estimated Blood Loss (ml): 0 IV fluids (ml): 400 Pathology: none sent Condition: stable Disposition: PACU Indications for Procedure: The patient is a 62-year-old white female with oxygen dependent COPD, who was recently diagnosed with a 1 cm right renal calculus. She has seen Dr. Chang and is scheduled to undergo ESWL on 01/22/2023. However, she now presents with intractable right flank and lower quadrant abdominal pain. CT scan shows right hydronephrosis due to a 1 cm right proximal ureteral calculus. She desires placement of a right ureteral stent to relieve obstruction and minimize her symptoms while awaiting ESWL. Operative Findings: 1 cm right proximal ureteral calculus, impacted. Description of Procedure: The patient was taken to the operating room and placed in the dorsolithotomy position, with legs supported in Ralph stirrups. The external genitalia was prepped and draped sterilely. The 30 lens was used to introduce the 22-Beninese Stortz cystoscopic sheath through the urethra and into the bladder under direct vision. The bladder was examined in its entirety. Both ureteral orifices were of normal anatomic location and configuration, and clear urine effluxed from both. No tumors or foreign bodies were seen. A 0.035 inch Glidewire was passed through the cystoscope. The right ureteral orifice was cannulated, and the Glid ewire was slowly advanced up to the right proximal ureteral calculus. However, the Glidewire could not be passed beyond the calculus. A 6-Beninese open-ended catheter was passed over the wire, up to the calculus, and the Glidewire was exchanged for an angle-tip 0.035 inch Glidewire, but this also could not be passed beyond the calculus. Therefore, the cystoscope was removed and the Olympus flexible ureteroscope was passed into the bladder. The right ureteral orifice was cannulated, and the ureteroscope was slowly advanced under direct vision, up to an angulation within the right proximal ureter just distal to the calculus. It was not possible to see the calculus, and a Glidewire was passed through the ureteroscope but could not be passed beyond the calculus. A syringe was used to inject 10 mL of normal saline through the ureteroscope. This presumably dislodge the calculus, as it was then possible to advance the ureteroscope under direct vision up to the right renal pelvis. The Glidewire was passed through the ureteroscope, which was withdrawn. The Glidewire was then backloaded into the cystoscope, which was passed into the bladder. A 24 cm, 6-Beninese double-J ureteral stent was placed over the wire. Proper stent positioning was verified fluoroscopically and endoscopically. The bladder was emptied and the cystoscope removed. The patient tolerated the procedure well was taken to the recovery room in stable condition.
[2023-01-01] MEDS ORDERED: hydrALAZINE HCL 20 MG/ML 1 ML VIAL IVP ONE (18:13)
--- NOTE | 2023-01-01 19:35 | FL ---
EXAMINATION TYPE: FL guidance operating room DATE OF EXAM: 01/01/2023 Comparison: None Clinical History: 62-year-old female Left Ureteral Stent Insertion Findings: Procedure fluoroscopy during left-sided urologic intervention. Total images: 1. Total fluoroscopy time 1 minute 5 seconds. Total DAP 17.13 mGycm2. Impression: Procedural fluoroscopy as above.
[2023-01-01 19:40] VITALS: RESP 18
[2023-01-01] MEDS: HEPARIN SODIUM,PORCINE/PF 5,000 UNIT/0.5 ML SYRINGE SQ SCH (21:13)
[2023-01-01] MEDS: MONTELUKAST 10 MG TAB PO SCH (21:13)
[2023-01-01] MEDS: FAMOTIDINE 20 MG/2 ML VIAL IV SCH (21:13)
[2023-01-02] MEDS: KETOROLAC 15 MG/ML 1 ML VIAL IVP SCH ×2 (06:10→11:44)
[2023-01-02] MEDS: SODIUM CHLORIDE 0.9% 1,000 ML IV SCH ×2 (06:13→11:42)
[2023-01-02] MEDS: FAMOTIDINE 20 MG/2 ML VIAL IV SCH (07:57)
[2023-01-02] MEDS: HEPARIN SODIUM,PORCINE/PF 5,000 UNIT/0.5 ML SYRINGE SQ SCH (07:58)
[2023-01-02] MEDS: NICOTINE 14MG/24HR PATCH TRANSDERM SCH (07:58)
[2023-01-02] MEDS: lisinopriL 20 MG TAB PO SCH (07:58)
[2023-01-02] MEDS: DILTIAZEM CD 240 MG CAP.ER.24H PO SCH (07:58)
[2023-01-02] MEDS ORDERED: ACETAMINOPHEN TAB 325 MG TAB PO PRN (07:59)
--- NOTE | 2023-01-02 09:34 | P.PN ---
Subjective Progress Note Date: 01/02/23 Principal diagnosis: Right hydronephrosis secondary to right ureteral calculus The patient underwent right ureteral stent insertion yesterday. She reports feeling much better this morning. She did experience hematuria following the procedure, and also reports mild stent discomfort which is tolerable. Objective - Vital Signs Vital signs: Vital Signs Temp 98.5 F 01/02/23 07:54 Pulse 80 01/02/23 07:54 Resp 18 01/02/23 07:54 BP 145/84 01/02/23 07:54 Pulse Ox 95 01/02/23 07:54 FiO2 Intake & Output 01/01/23 01/02/23 01/02/23 18:59 06:59 18:59 Intake Total 1240 118 Output Total 350 1450 600 Balance 890 -1450 -482 Intake: IV 700 Oral 540 118 Output: Urine 350 1450 600 Estimated Blood Loss 0 Other: Voiding Method Toilet Toilet Toilet # Voids 3 - Constitutional General appearance: Present: average body habitus, cooperative, no acute distress - Psychiatric Psychiatric: Present: A&O x's 3 - Labs CBC & Chem 7: 01/01/23 08:58 01/01/23 08:58 Labs: Abnormal Lab Results - Last 24 Hours (Table) 01/01/23 Range/Units 08:58 BUN 19 H (7-17) mg/dL Calcium 8.3 L (8.4-10.2) mg/dL Assessment and Plan Assessment: The patient's right renal calculus migrated into the right proximal ureter, causing mild-moderate right hydronephrosis with intractable pain. She is now feeling much better following stent placement. (1) Calculus of ureter Current Visit: Yes Status: Acute Code(s): N20.1 - CALCULUS OF URETER SNOMED Code(s): 94845547 (2) Hydronephrosis with renal and ureteral calculous obstruction Current Visit: Yes Status: Acute Code(s): N13.2 - HYDRONEPHROSIS WITH RENAL AND URETERAL CALCULOUS OBSTRUCTION SNOMED Code(s): 610698045 Plan: Patient is urologically stable for discharge. She was advised to contact our office if she experiences increased stent discomfort. She is scheduled to undergo ESWL on 01/22/2023.
[2023-01-02 11:46] VITALS: BP 137/77; PULSE 81; TEMP 97.7
--- NOTE | 2023-01-02 22:08 | P.DS ---
Providers Date of admission: 12/31/22 13:56 Attending physician: Wan Franco Consults: 12/31/22 13:56 Consult Physician Urgent Consulting Provider: Speedy Butler Consult Reason/Comments: Right ureterolithiasis, intractable pain Do you want consulting provider notified?: Already Contacted Primary care physician: Chyna Harvey [facility] Course: Assessment: Diagnoses: Intractable abdominal pain secondary to right renal calculus with resultant mild hydronephrosis. Status post right ureteral stent placement Right renal colic secondary to above Hypertension History of COPD, normoactive tissue. Hospital course: This is a pleasant 62 years old female with a known history of right kidney stone, she was plans to see Dr. Chang and is scheduled to undergo ESWL on 01/22/2023. However patient presents with worsening renal colic and right flank pain secondary to right kidney stones with mild hydronephrosis. Patient evaluated by a urologist Dr. Butler, and she underwent successful right ureteral stent placement, after the procedure patient feels better. Symptoms improved. Open only for mild discomfort. And the patient wants to go home today Patient was cleared for discharge by urologist Problems and management plan were discussed with the patient and he verbalized understanding and acceptance Patient was found stable and can be discharged home in guarded prognosis however he needs follow-up as an outpatient. Patient was instructed to follow up with PCP Dr. hunter within one week and patient agrees Patient was instructed to follow up with her urologist in 1-2 weeks after discharge and she agrees Patient instructed to follow up with her urologist appointment on 01/22 Physical exam Gen: patient is a AAOx3, no distress CVS: S1-S2, RRR, no murmur Lungs: B/L CTA, no wheezing Abdomen: soft, no distention, no tenderness, positive bowel sounds Extremity: no leg edema or induration Time spent more than 35 minutes Patient Condition at Discharge: Fair Plan - Discharge Summary New Discharge Prescriptions: New Nicotine 14Mg/24Hr Patch [Habitrol] 1 patch TRANSDERM DAILY #3 patch Acetaminophen Tab [Tylenol] 325 mg PO Q6H PRN #30 tab PRN Reason: Pain Continue Montelukast [Singulair] 10 mg PO DAILY Diltiazem Cd [Cardizem CD] 240 mg PO DAILY Ipratropium-Albuterol Nebulize [Duoneb 0.5 mg-3 mg/3 ml Soln] 3 ml INHALATION RT-QID lisinopriL [Prinivil] 20 mg PO DAILY Fluticasone Propionate [Flovent Hfa 220 mcg] 2 puff INHALATION RT-BID amLODIPine [Norvasc] 5 mg PO DAILY Atorvastatin [Lipitor] 20 mg PO DAILY Budesonide/Formoterol Fumarate [Symbicort 160-4.5 Mcg Inhaler] 2 puff INHALATION RT-BID Ergocalciferol [Vitamin D2 (1250 Mcg = 01365 Iu)] 1,250 mcg PO Q28D Discharge Medication List Montelukast [Singulair] 10 mg PO DAILY 12/14/15 [History] Diltiazem Cd [Cardizem CD] 240 mg PO DAILY 12/15/15 [History] lisinopriL [Prinivil] 20 mg PO DAILY 10/18/22 [History] Atorvastatin [Lipitor] 20 mg PO DAILY 12/31/22 [History] Budesonide/Formoterol Fumarate [Symbicort 160-4.5 Mcg Inhaler] 2 puff INHALATION RT-BID 12/31/22 [History] Ergocalciferol [Vitamin D2 (1250 Mcg = 54291 Iu)] 1,250 mcg PO Q28D 12/31/22 [History] Fluticasone Propionate [Flovent Hfa 220 mcg] 2 puff INHALATION RT-BID 12/31/22 [History] Ipratropium-Albuterol Nebulize [Duoneb 0.5 mg-3 mg/3 ml Soln] 3 ml INHALATION RT-QID 12/31/22 [History] amLODIPine [Norvasc] 5 mg PO DAILY 12/31/22 [History] Acetaminophen Tab [Tylenol] 325 mg PO Q6H PRN #30 tab 01/02/23 [Rx] Nicotine 14Mg/24Hr Patch [Habitrol] 1 patch TRANSDERM DAILY #3 patch 01/02/23 [Rx] Follow up Appointment(s)/Referral(s): Speedy Butler MD [STAFF PHYSICIAN] - 01/29/23 1:00 pm (Surgery Jan 22, will call with a time. ) Chyna Harvey MD [Primary Care Provider] - 1-2 days Patient Instructions/Handouts: Kidney Stones (DC), Acute Abdominal Pain (DC), Hydronephrosis (DC) Activity/Diet/Wound Care/Special Instructions: scheduled to undergo ESWL on 01/22/2023 heart healthy diet activity is restricted till you see your doctor Discharge Disposition: HOME SELF-CARE
== END 2023-01-02 17:33 | disposition home or self-care (01) ==
LOC: EC 08:31 → 3SCARD 13:56
PROVIDERS: ADMIT Hospitalist; ATTEND Hospitalist
DX: N13.2 Hydronephrosis with renal and ureteral calculous obstruction (principal); J44.9 Chronic obstructive pulmonary disease, unspecified; J96.11 Chronic respiratory failure with hypoxia; I10 Essential (primary) hypertension; F41.9 Anxiety disorder, unspecified; E66.9 Obesity, unspecified; Z68.33 Body mass index [BMI] 33.0-33.9, adult; Z87.442 Personal history of urinary calculi; Z87.891 Personal history of nicotine dependence; Z79.51 Long term (current) use of inhaled steroids; Z79.899 Other long term (current) drug therapy; Z88.2 Allergy status to sulfonamides
CPT/HCPCS: 96376 ×3; 96374; 96375; 99285; 36415; 80053 ×2; 82150; 83605; 83690; 84484; 85025 ×2; 81001; 71045; 74176; 52332; G0378 ×3; C1758 ×2; C1769; S4990 ×2; J2250; J0360; J2405; J0690; J3010; J1170 ×2; J1885 ×3; J2704; J1644 ×2; J2001

== ENCOUNTER → 2023-01-15 | Outpatient (CLI) | payer OTHER ==
[2023-01-16 03:35] LABS: Basophils # (A) 0.06 X 10*3/uL (0.00-0.10); Basophils % (A) 0.6 %; Eosinophils # (A) 0.36 X 10*3/uL (0.04-0.35); Eosinophils % (A) 3.6 %; HCT 45.5 % (37.2-46.3); HGB 13.4 d/dL (12.0-15.0); Lymphocytes # (A) 2.56 X 10*3/uL (0.90-5.00); Lymphocytes % (A) 25.6 %; MCH 25.2 pg (27.0-32.0); MCHC 29.5 d/dL (32.0-37.0); MCV 85.7 FL (80.0-97.0); Mean Platelet Volume 10.2 FL (9.5-12.2); Monocytes # (A) 0.78 X 10*3/uL (0.20-1.00); Monocytes % (A) 7.8 %; NRBC Per 100 WBC 0 X 10*3/uL (0.00-0.01); Neutrophils # (A) 6.15 X 10*3/uL (1.80-7.70); Neutrophils % (A) 61.6 %; Platelet Count 397 X 10*3/uL (140-440); RBC 5.31 X 10*6/uL (4.10-5.20); RDW 13.7 % (11.5-14.5); WBC 9.99 X 10*3/uL (4.50-10.00)
[2023-01-16 03:45] LABS: Chloride 99 mmol/L (96-109); Potassium 4.4 mmol/L (3.5-5.5); Sodium 140 mmol/L (135-145)
[2023-01-16 04:22] LABS: Appearance,Urine Turbid (Clear); Bacteria,Urine Trace; Bilirubin,Urine Small (Negative); Blood,Urine Large (Negative); Color,Urine Orange (Yellow); Ketones,Urine Negative (Negative); Nitrite,Urine Negative (Negative); PH, Urine 5.5; Specific Gravity,Urine 1.028 (1.001-1.030)
== END | disposition home or self-care (01) ==
LOC: LABPAT 14:43
PROVIDERS: ATTEND Urology
DX: Z01.812 Encounter for preprocedural laboratory examination (principal); N20.0 Calculus of kidney; R31.29 Other microscopic hematuria
CPT/HCPCS: 36415; 80051; 81001; 82565; 85025; 87086

== ENCOUNTER 2023-01-22 06:51 | Day surgery (SDC) | payer OTHER ==
[2023-01-12 15:21] VITALS: BMI 30.9
[~2023-01-22 06:51] MED LIST changes: +DEXAMETHASONE SOD PHOSPHATE 4 MG/ML 1 ML VIAL IV ONE; +HYDROmorphone 0.5 MG/0.5 ML SYRINGE IVP PRN; +MIDAZOLAM 2 MG/2 ML VIAL IV PRN; +ONDANSETRON 4 MG/2 ML VIAL IVP ONE
--- NOTE | 2023-01-22 07:46 | XR ---
EXAMINATION TYPE: XR KUB DATE OF EXAM: 01/22/2023 COMPARISON: CT 01/01/2012. HISTORY: Pain TECHNIQUE: One view abdominal series FINDINGS: The osseous structures are intact. The bowel gas pattern is nonspecific. Double-J right-sided ureter al stent with a 1.2 cm right renal calculus. Additional calculi in the pelvis are likely vascular. Ca lcifications along the sacrum bilaterally are symmetric and likely vascular. Previously noted 3 mm ca lculi overlying the kidneys are not as well-seen by standard x-ray. Could not exclude a tiny 2 mm emanuel culus along right hemipelvic portion of the stent. IMPRESSION: 1. 1.2 cm right renal calculus. CT reported 3 mm punctate renal calculi are not as well-seen by stand marlena x-ray. There is a 2 mm calcification along the distal margin of the ureteral stent which could re present a ureteral calculus.
--- NOTE | 2023-01-22 07:51 | P.HPIHPCON ---
History of Present Illness H&P Date: 01/22/23 Chief Complaint: Right-sided renal stone This is a 62-year-old female history of a 1.3 cm right-sided renal stone, she is status post stent insertion. Presents today for right-sided ESWL. Risks benefits and rationale of doing surgery was discussed with her in detail. Alte rnative of right-sided ureteroscopy was also discussed. She agreed to proceed with right-sided ESWL. risk which includes but not limited to bleeding, infection, renal hematoma, and persistent stone was discussed . She understood all the risk and agreed to proceed Consent for Procedure: I have explained the operation/procedure to the patient, including the risks, benefits, side effects, alternative therapies (including not receiving the proposed treatment or service), the likelihood of the patient achieving his/her goals, and potential recuperation problems for the procedure/sedation/analgesia, as well as any blood products, if indicated. I also explained to the patient the risks, benefits and side effects of the alternatives, as well as the risks related to not receiving the proposed procedure, care, treatment, or services. Past Medical History Past Medical History: COPD, Hypertension Additional Past Medical History / Comment(s): LEFT ARM LIPOMA, right side kidney stone History of Any Multi-Drug Resistant Organisms: None Reported Additional Past Surgical History / Comment(s): WISDOM TEETH, Past Anesthesia/Blood Transfusion Reactions: No Reported Reaction Additional Past Anesthesia/Blood Transfusion Reaction / Comment(s): STATES "HEART WAS BEATING VERY FAST AND ALMOST HAD PANIC ATTACK" Past Psychological History: Anxiety Smoking Status: Former smoker Past Alcohol Use History: None Reported Additional Past Alcohol Use History / Comment(s): QUIT SMOKING 2 YEARS AGO-USING PATCH Past Drug Use History: Marijuana - Past Family History Brother(s) Family Medical History: Cancer Medications and Allergies Home Medications Medication Instructions Recorded Confirmed Type Montelukast [Singulair] 10 mg PO HS 12/14/15 01/12/23 History Diltiazem Cd [Cardizem CD] 240 mg PO DAILY 12/15/15 01/12/23 History lisinopriL [Prinivil] 20 mg PO DAILY 10/18/22 01/12/23 History Atorvastatin [Lipitor] 20 mg PO DAILY 12/31/22 01/12/23 History Budesonide/Formoterol Fumarate 2 puff INHALATION RT-BID 12/31/22 01/12/23 History [Symbicort 160-4.5 Mcg Inhaler] Ergocalciferol [Vitamin D2 (1250 1,250 mcg PO Q28D 12/31/22 01/12/23 History Mcg = 80115 Iu)] Fluticasone Propionate [Flovent 2 puff INHALATION RT-BID 12/31/22 01/12/23 History Hfa 220 mcg] Ipratropium-Albuterol Nebulize 3 ml INHALATION RT-QID 12/31/22 01/12/23 History [Duoneb 0.5 mg-3 mg/3 ml Soln] amLODIPine [Norvasc] 5 mg PO DAILY 12/31/22 01/12/23 History Acetaminophen Tab [Tylenol] 325 mg PO Q6H PRN #30 tab 01/02/23 01/12/23 Rx Nicotine 14Mg/24Hr Patch [Habitrol] 1 patch TRANSDERM DAILY #3 patch 01/02/23 01/12/23 Rx Allergies Allergy/AdvReac Type Severity Reaction Status Date / Time sulfamethoxazole Allergy Unknown Verified 01/12/23 15:03 [From Bactrim] trimethoprim [From Bactrim] Allergy Unknown Verified 01/12/23 15:03 furosemide [From Lasix] AdvReac MUSCLE Verified 01/12/23 15:03 SPASMS Surgical - Exam - General no distress, moderate pain - Eyes normal ocular movement, no pale - ENT normal nares, normal mucosa - Respiratory normal expansion, normal respiratory effort Assessment and Plan Assessment: OR for right ESWL
[2023-01-22 08:00] VITALS: TEMP 97.6
[2023-01-22] MEDS ORDERED: KETAMINE 10 MG/ML 20 ML VIAL ONE (08:32)
[2023-01-22] MEDS ORDERED: fentaNYL (PF) 50 MCG/ML 2 ML AMP ONE (08:32)
[2023-01-22] MEDS ORDERED: MIDAZOLAM 2 MG/2 ML VIAL ONE (08:32)
[2023-01-22] MEDS ORDERED: PROPOFOL 10 MG/ML 20 ML VIAL IV ONE (08:32)
--- NOTE | 2023-01-22 09:31 | P.OP ---
Date of Procedure: 01/22/23 Preoperative Diagnosis: Right renal stone Postoperative Diagnosis: Same Procedure(s) Performed: Right ESWL Implants: none Anesthesia: KELSIE Surgeon: Mauricio Chang Estimated Blood Loss (ml): 0 Pathology: none sent Condition: stable Disposition: PACU Indications for Procedure: This is a 62-year-old female history of a 1.3 cm right-sided renal stone, she is status post stent insertion. Presents today for right-sided ESWL. Risks benefits and rationale of doing surgery was discussed with her in detail. Alternative of right-sided ureteroscopy was also discussed. She agreed to proceed with right-sided ESWL. risk which includes but not limited to bleeding, infection, renal hematoma, and persistent stone was discussed . She understood all the risk and agreed to proceed Operative Findings: Right sided radiopaque renal stone in the renal Description of Procedure: The patient was taken to the operating room and placed on the Dornier Compact Delta II lithotripter in the supine position. right renal pelvis stone was seen on the biplanar fluoroscopy. Once the patient was properly positioned and sedated, lithotripsy was performed. The energy level was gradually increased per protocol, to an energy level of 4. A total of 2500 shocks were given at a rate of 80 shocks per minute. Fluoroscopy was utilized at a minimum to ensure proper positioning and determine the treatment status. Stone partially fragmented on fluoroscopy, but there appeared to be still significant stone burden The patient tolerated the procedure well was taken to the recovery room in stable condition. Instructions were given to strain the urine, and the patient will follow-up within one week.
[2023-01-22 09:43] VITALS: RESP 20
[2023-01-22] MEDS ORDERED: HYDROcodone/APAP 5-325MG 1 EACH TAB ONE (09:50)
[2023-01-22] MEDS ORDERED: HYDROcodone/APAP 5-325MG 1 EACH TAB PO ONE (09:50)
[2023-01-22 10:20] VITALS: BP 168/114; PULSE 99
== END 2023-01-22 10:35 | disposition home or self-care (01) ==
LOC: ORWHC2ENDO 06:51
PROVIDERS: ATTEND Urology
DX: N20.0 Calculus of kidney (principal); I10 Essential (primary) hypertension; J44.9 Chronic obstructive pulmonary disease, unspecified; F41.9 Anxiety disorder, unspecified; Z87.891 Personal history of nicotine dependence; F12.90 Cannabis use, unspecified, uncomplicated; Z80.9 Family history of malignant neoplasm, unspecified; Z88.2 Allergy status to sulfonamides; Z79.51 Long term (current) use of inhaled steroids; Z79.899 Other long term (current) drug therapy
CPT/HCPCS: 74018; 50590; J2250; J1100; J2405; J3010; J2704

== ENCOUNTER → 2023-01-29 | Outpatient (CLI) | payer OTHER ==
--- NOTE | 2023-01-29 12:11 | XR ---
EXAMINATION TYPE: XR KUB DATE OF EXAM: 01/29/2023 COMPARISON: 01/22/2023 HISTORY: Kidney stones TECHNIQUE: One view abdominal series FINDINGS: The osseous structures are intact. The bowel gas pattern is nonspecific. There is a right-sided doub le-J ureteral stent. Calcifications in the pelvis appear to be vascular. There is a faint 2 mm calcif ication along the distal margin of the stent is stable from prior exam. There also is a right renal c alculus measuring 1 cm. IMPRESSION: 1. 1 cm right renal calculus with possible 1 to 2 mm distal ureteral calculus.
== END | disposition home or self-care (01) ==
LOC: RADXRMAIN 11:26
PROVIDERS: ATTEND Urology
DX: N20.0 Calculus of kidney (principal)
CPT/HCPCS: 74018

== ENCOUNTER → 2023-02-20 | Outpatient (CLI) | payer OTHER ==
[2023-02-20 20:40] LABS: Appearance,Urine Turbid (Clear); Bacteria,Urine Trace; Bilirubin,Urine Negative (Negative); Blood,Urine Large (Negative); Color,Urine Dark Yellow (Yellow); Ketones,Urine Trace (Negative); Nitrite,Urine Negative (Negative); PH, Urine 5.5; Specific Gravity,Urine 1.024 (1.001-1.030)
[2023-02-20 20:48] LABS: Basophils # (A) 0.04 X 10*3/uL (0.00-0.10); Basophils % (A) 0.4 %; Eosinophils # (A) 0.26 X 10*3/uL (0.04-0.35); Eosinophils % (A) 2.8 %; HCT 45.6 % (37.2-46.3); HGB 14.3 d/dL (12.0-15.0); Lymphocytes # (A) 2.52 X 10*3/uL (0.90-5.00); Lymphocytes % (A) 27.3 %; MCH 25.5 pg (27.0-32.0); MCHC 31.4 d/dL (32.0-37.0); MCV 81.4 FL (80.0-97.0); Mean Platelet Volume 10.1 FL (9.5-12.2); Monocytes # (A) 0.59 X 10*3/uL (0.20-1.00); Monocytes % (A) 6.4 %; NRBC Per 100 WBC 0 X 10*3/uL (0.00-0.01); Neutrophils # (A) 5.76 X 10*3/uL (1.80-7.70); Neutrophils % (A) 62.6 %; Platelet Count 460 X 10*3/uL (140-440); RDW 14.1 % (11.5-14.5); WBC 9.22 X 10*3/uL (4.50-10.00)
[2023-02-20 20:50] LABS: BUN/Creat Ratio 15.88 Ratio (12.00-20.00); Blood Urea Nitrogen 12.7 mg/dL (9.0-27.0); Calcium 9.6 mg/dL (8.7-10.3); Carbon Dioxide 28.7 mmol/L (21.6-31.8); Chloride 102 mmol/L (96-109); Glucose 127 mg/dL (70-110); Potassium 3.9 mmol/L (3.5-5.5); Sodium 143 mmol/L (135-145)
== END | disposition home or self-care (01) ==
LOC: LABPAT 14:10
PROVIDERS: ATTEND Urology
DX: Z01.812 Encounter for preprocedural laboratory examination (principal); N20.0 Calculus of kidney; R31.0 Gross hematuria
CPT/HCPCS: 80048; 81001; 85025; 87086

== ENCOUNTER → 2023-09-10 | Outpatient (CLI) | payer OTHER ==
--- NOTE | 2023-09-11 10:28 | CTL ---
EXAMINATION TYPE: CT Low Dose Lung DATE OF EXAM ORDERED: 09/10/2023 HISTORY: . Lung cancer screening CT DLP: 154.[address] CTDI: 4.0 mGy Automated exposure control for dose reduction was used. SCREENING VISIT: Subsequent COMPARISON: 05/31/2020 06/05/2016 TECHNIQUE: Low dose computed tomography scan was performed through the chest at 1 mm thick sections a nd reconstructed images in the coronal plane at [address] DIAGNOSTIC QUALITY: Satisfactory FINDINGS: LUNG NODULES: None. 1. There is a 0.8 cm density along the major fissure posterior left apex. This appears to have a cent ral calcification suggesting granuloma. Short-term follow-up recommended in 6 months. Series 4 image 52. 2. There is a calcification in the periphery of the left mid lung. Series 4 image 107. Small subpleur al nodules are adjacent. Series 4 image 112. 3. Punctate densities in the posterior lateral superior segment right lower lobe. Series 4 image 154. #4 there is a 1.3 cm density within the lingula. Series 4 image 172. This could be some atelectasis. Short-term follow-up is recommended. LUNGS: COPD: Severity: None Fibrosis: Severity: None Lymph nodes: Multiple calcified lymph nodes are within the mediastinum and left hilar region. Enlarge d noncalcified lymphadenopathy is not identified. There is some shotty lymphadenopathy within the med iastinum. Other findings: None RIGHT PLEURAL SPACE: Effusion: None Calcification: None Thickening: None Pneumothorax: None LEFT PLEURAL SPACE: Effusion: None Calcification: Thickening: None Pneumothorax: None HEART: Heart Size: Normal Coronary calcification: None Pericardial effusion: None OTHER FINDINGS: Upper abdomen: Normal Bony thorax: Normal Supraclavicular region: Normal Other: Ascending thoracic aorta at the level the main pulmonary artery measures 3.5 cm. The main pul monary artery at the bifurcation measures 2.7 cm. IMPRESSION: Probably benign findings. FOLLOW UP CT CHEST RECOMMENDATION: Follow-up noncontrast CT chest [address] LUNG RAD: Lung-Rad 3 Probably Benign
== END | disposition home or self-care (01) ==
LOC: RADCTMAIN 13:58
PROVIDERS: ATTEND Family Medicine
DX: Z12.2 Encounter for screening for malignant neoplasm of respiratory organs (principal); Z87.891 Personal history of nicotine dependence
CPT/HCPCS: 71271

== ENCOUNTER → 2023-09-11 | Outpatient (CLI) | payer OTHER ==
[2023-09-11 16:21] LABS: HGB 13.9 g/dL (12.0-15.0); MCH 25.2 pg (27.0-32.0); MCHC 30.9 g/dL (32.0-37.0); MCV 81.7 FL (80.0-97.0); NRBC Per 100 WBC 0 X 10*3/uL (0.00-0.01); Platelet Count 407 X 10*3/uL (140-440); RBC 5.51 X 10*6/uL (4.10-5.20); RDW 14.1 % (11.5-14.5); WBC 10.58 X 10*3/uL (4.50-10.00)
[2023-09-11 16:22] LABS: Basophils # (A) 0.05 X 10*3/uL (0.00-0.10); Basophils % (A) 0.5 %; Eosinophils % (A) 2.8 %; Lymphocytes # (A) 2.93 X 10*3/uL (0.90-5.00); Lymphocytes % (A) 27.7 %; Monocytes # (A) 0.67 X 10*3/uL (0.20-1.00); Monocytes % (A) 6.3 %; Neutrophils # (A) 6.53 X 10*3/uL (1.80-7.70); Neutrophils % (A) 61.8 %
[2023-09-11 16:43] LABS: % Iron Saturation 12.97 (12.00-45.00); ALT 29 U/L (8-44); AST 28 U/L (13-35); Albumin 4.2 g/dL (3.8-4.9); Albumin/Globulin Ratio 1.56 Ratio (1.60-3.17); Alkaline Phosphatase 110 U/L (41-126); BUN/Creat Ratio 20.86 Ratio (12.00-20.00); Blood Urea Nitrogen 14.6 mg/dL (9.0-27.0); Calcium 9.5 mg/dL (8.7-10.3); Chloride 100 mmol/L (96-109); Chol/HDL Ratio 4.31 Ratio; Globulin 2.7 g/dL (1.6-3.3); Glucose 103 mg/dL (70-110); Iron 48 UG/DL (50-170); LDL Cholesterol,Calculated 108.8 mg/dL (0.0-131.0); Potassium 4.2 mmol/L (3.5-5.5); Sodium 139 mmol/L (135-145); Total Bilirubin 0.3 mg/dL (0.3-1.2); Total Iron Binding Capacity 370 UG/DL (228-460); Total Protein 6.9 g/dL (6.2-8.2)
== END | disposition home or self-care (01) ==
LOC: LABWHC1 08:26
PROVIDERS: ATTEND Family Medicine
DX: I10 Essential (primary) hypertension (principal); E78.2 Mixed hyperlipidemia
CPT/HCPCS: 36415; 80053; 80061; 82306; 82607; 82728; 82746; 83036; 83540; 83550; 83735; 84443; 85025

== ENCOUNTER → 2023-10-04 | Outpatient (CLI) | payer OTHER ==
[2023-10-04 14:29] LABS: HCT 45.5 % (37.2-46.3); HGB 13.6 g/dL (12.0-15.0); MCH 24.8 pg (27.0-32.0); MCHC 29.9 g/dL (32.0-37.0); MCV 82.9 FL (80.0-97.0); Mean Platelet Volume 9.9 FL (9.5-12.2); NRBC Per 100 WBC 0 X 10*3/uL (0.00-0.01); Platelet Count 426 X 10*3/uL (140-440); RBC 5.49 X 10*6/uL (4.10-5.20); RDW 14.2 % (11.5-14.5); WBC 11.67 X 10*3/uL (4.50-10.00)
[2023-10-04 14:45] LABS: Blood Urea Nitrogen 11.9 mg/dL (9.0-27.0); Carbon Dioxide 28.5 mmol/L (21.6-31.8); Chloride 101 mmol/L (96-109); Potassium 4.7 mmol/L (3.5-5.5); Sodium 139 mmol/L (135-145)
== END | disposition home or self-care (01) ==
LOC: RADXRMAIN 11:13
PROVIDERS: ATTEND Internal Medicine
DX: Z01.812 Encounter for preprocedural laboratory examination (principal); R06.02 Shortness of breath; R00.2 Palpitations
CPT/HCPCS: 80051; 82565; 84520; 85027

== ENCOUNTER 2023-10-11 07:43 | Day surgery (SDC) | payer OTHER ==
[2023-10-09 09:02] VITALS: BMI 39.3
[~2023-10-11 07:43] MED LIST changes: +ALPRAZolam 0.25 MG TAB PO PRN; +ALPRAZolam 0.5 MG TAB PO PRN; +ASPIRIN 325 MG TAB PO ONE; -DEXAMETHASONE SOD PHOSPHATE 4 MG/ML 1 ML VIAL IV ONE; +HEPARIN SODIUM,PORCINE (1 ML) 2,500 UNIT in SODIUM CHLORIDE 0.9% 250 ML IRRIGATION PRN; +HEPARIN SODIUM,PORCINE 10,000 UNIT in SODIUM CHLORIDE 0.9% 1,000 ML IRRIGATION PRN; -HYDROmorphone 0.5 MG/0.5 ML SYRINGE IVP PRN; -LACTATED RINGERS 1,000 ML IV SCH; -LIDOCAINE 1% (10MG/ML) FOR IV START INTRADERMA PRN; -MIDAZOLAM 2 MG/2 ML VIAL IV PRN; +NITROGLYCERIN SL TABS 0.4 MG TAB SUBLINGUAL PRN; -ONDANSETRON 4 MG/2 ML VIAL IVP ONE; +SODIUM CHLORIDE 0.9% 1,000 ML in EMPTY BAG 1 BAG IV SCH
[2023-10-11] MEDS: DILTIAZEM CD 240 MG CAP.ER.24H PO SCH (08:34)
[2023-10-11] MEDS ORDERED: VERAPAMIL 2.5 MG/ML 2 ML AMP ONE (08:51)
[2023-10-11] MEDS ORDERED: LIDOCAINE 1% INJ 10MG/ML (20 ML MDV) ONE (08:51)
[2023-10-11] MEDS ORDERED: HEPARIN SODIUM 1,000 UN/ML (10ML VL) ONE (09:03)
[2023-10-11] MEDS ORDERED: fentaNYL (PF) 50 MCG/ML 2 ML AMP ONE (09:04)
[2023-10-11 09:06] VITALS: RESP 16; TEMP 98.3
[2023-10-11] MEDS: fentaNYL (PF) 50 MCG/ML 2 ML AMP IVP ONE (09:22)
[2023-10-11] MEDS: LIDOCAINE 1% INJ 10MG/ML (5 ML VIAL-PF) SQ ONE (09:22)
[2023-10-11] MEDS: MIDAZOLAM 2 MG/2 ML VIAL IVP ONE (09:22)
[2023-10-11] MEDS: VERAPAMIL SYRINGE (5 MG/10 ML) INTRAARTER ONE (09:24)
[2023-10-11] MEDS: HEPARIN SODIUM 1,000 UN/ML (10ML VL) IVP ONE (09:26)
[2023-10-11] MEDS: IOPAMIDOL-370 100ML BTL INJ ONE (09:32)
[2023-10-11] MEDS: IV FLUID CONTINUATION 1,000 ML IV ONE (09:33)
[2023-10-11 13:40] VITALS: BP 172/91; PULSE 85
--- NOTE | 2023-10-12 23:57 | P.CARDCATH ---
Description of Procedure: PROCEDURES PERFORMED: Left heart catheterization, bilateral coronary angiography, ultrasound guided arterial access INDICATION: Abnormal stress test CONSENT:I have discussed the risks, benefits and alternative therapies for the above-mentioned procedure and for both sedation/analgesia as well as necessary blood product administration, if indicated, as they pertain to this patient. The patient has indicated understanding and acceptance of the risks and procedures discussed. PROCEDURE: After the risks, benefits and alternatives of the above mentioned procedure explained in detail with the patient, informed consent was obtained. Patient was taken to the catheterization lab and prepped and draped in usual fashion. Ultrasound guidance was used to assess for arterial access. 1% lidocaine was used to anesthetize the right radial artery. A 6-Kittitian sheath was placed in the right radial artery using modified Seldinger technique and ultrasound guidance. Left coronary angiography was performed with a 5-Kittitian JL 3.5 catheter and right coronary angiography was performed with a 5-Kittitian FR5 catheter in various views. A 5-Kittitian FR5 catheter was inserted into the left ventricle and pressure measurements were obtained. The right radial sheath was removed and a TR band was placed with hemostasis achieved. The patient to lerated the procedure well. Patient was transported back to the post catheterization holding area in stable condition. Conscious Sedation: Patient was monitored under the direct supervision of myself for conscious sedation using Versed and fentanyl for a total duration of 10 minutes HEMODYNAMICS: Aorta: 138/76 LV: 137/13, LVEDP 20 SELECTIVE CORONARY ARTERIOGRAPHY: LEFT MAIN: The left main is a large caliber vessel which bifurcates into the LAD and circumflex. There is no significant stenosis. LEFT ANTERIOR DESCENDING CORONARY ARTERY: LAD is a large caliber vessel which wraps around to the apex. There is no significant stenosis. LEFT CIRCUMFLEX CORONARY ARTERY: Left circumflex is a moderate caliber vessel without significant stenosis. RIGHT CORONARY ARTERY: The right coronary artery is a large caliber vessel which gives off a PDA and PLV branch and is the dominant vessel. There is no significant stenosis. FINAL IMPRESSION: 1. Normal coronary arteries as described above. 2. Elevated left sided filling pressures PLAN: 1. Aggressive risk factor modification per most recent ACC/AHA guidelines. 2. Follow-up in the office in 1-2 weeks.
== END 2023-10-11 14:24 ==
LOC: CATHCVL 07:43
PROVIDERS: ATTEND Internal Medicine
DX: R94.39 Abnormal result of other cardiovascular function study (principal); I10 Essential (primary) hypertension; E78.5 Hyperlipidemia, unspecified; J44.9 Chronic obstructive pulmonary disease, unspecified; G89.29 Other chronic pain; F41.9 Anxiety disorder, unspecified; Z87.891 Personal history of nicotine dependence; Z79.82 Long term (current) use of aspirin; Z79.899 Other long term (current) drug therapy
CPT/HCPCS: 99152; 93458; 76937; C1769; C1894; J2250; J2001; J3010; J1644; Q9967

== ENCOUNTER 2023-11-01 00:34 | Observation (INO) | payer OTHER ==
--- NOTE | 2023-11-01 00:49 | ED ---
SOB HPI - General Chief Complaint: Shortness of Breath Stated Complaint: TARAS Time Seen by Provider: 11/01/23 00:39 Source: EMS Mode of arrival: EMS - History of Present Illness Initial Comments: This patient is a 63-year-old woman with history of asthma/COPD, who states that she uses oxygen at home set at 2 L, and states that she has been more short of breath than usual. She states that she cannot really do much activity without becoming very short of breath. She does have a little bit of cough but not very prominent. No sputum production. Patient denies chest pain. No recent fevers. She has not noted change in urination or bowel movements. No leg pain or swelling MD Complaint: shortness of breath -: hour(s) Severity scale (1-10): 0 Consistency: constant Improves With: nothing Worsens With: nothing Known History Of: COPD, asthma Associated Symptoms: denies other symptoms Treatments Prior to Arrival: oxygen, bronchodilator - Related Data Home Oxygen Therapy: Yes Home Oxygen Amount: 2 Liters Home Medications Medication Instructions Recorded Confirmed Montelukast [Singulair] 10 mg PO HS 12/14/15 10/09/23 Diltiazem Cd [Cardizem CD] 240 mg PO DAILY 12/15/15 10/09/23 lisinopriL [Prinivil] 20 mg PO DAILY 10/18/22 10/11/23 Atorvastatin [Lipitor] 20 mg PO DAILY 12/31/22 10/09/23 Budesonide/Formoterol Fumarate 2 puff INHALATION BID 12/31/22 10/09/23 [Symbicort 160-4.5 Mcg Inhaler] Ergocalciferol [Vitamin D2 (1250 1,250 mcg PO Q28D 12/31/22 10/09/23 Mcg = 21004 Iu)] Fluticasone Propionate [Flovent 2 puff INHALATION BID 12/31/22 10/09/23 Hfa 220 mcg] Ipratropium-Albuterol Nebulize 3 ml INHALATION QID 12/31/22 10/09/23 [Duoneb 0.5 mg-3 mg/3 ml Soln] Previous Rx's Medication Instructions Recorded Acetaminophen Tab [Tylenol] 325 mg PO Q6H PRN #30 tab 01/02/23 HYDROcodone/APAP 5-325MG [Aurora 1 tab PO Q6HR PRN 3 Days #12 tab 01/22/23 5-325] Allergies Allergy/AdvReac Type Severity Reaction Status Date / Time sulfamethoxazole Allergy Rash/Hives Verified 11/01/23 00:43 [From Bactrim] tramadol Allergy Rash/Hives Verified 11/01/23 00:43 trimethoprim [From Bactrim] Allergy Rash/Hives Verified 11/01/23 00:43 furosemide [From Lasix] AdvReac MUSCLE Verified 11/01/23 00:43 SPASMS Review of Systems ROS Statement: Those systems with pertinent positive or pertinent negative responses have been documented in the HPI. ROS Other: All systems not noted in ROS Statement are negative. Constitutional: Denies: fever, chills, weakness Respiratory: Reports: dyspnea, wheezes Cardiovascular: Reports: dyspnea on exertion. Denies: chest pain, palpitations, orthopnea, edema, syncope Gastrointestinal: Denies: abdominal pain, nausea, vomiting Genitourinary: Denies: dysuria, hematuria Musculoskeletal: Denies: back pain Skin: Denies: rash Neurological: Denies: headache, weakness Psychiatric: Reports: anxiety Past Medical History Past Medical History: COPD, Hypertension Additional Past Medical History / Comment(s): LEFT ARM LIPOMA, right side kidney stone, uses O2 @1-2l prn History of Any Multi-Drug Resistant Organisms: None Reported Additional Past Surgical History / Comment(s): WISDOM TEETH, colonoscopy, recent lithotripsy right side Past Anesthesia/Blood Transfusion Reactions: No Reported Reaction Additional Past Anesthesia/Blood Transfusion Reaction / Comment(s): STATES HEART WAS BEATING VERY FAST AND ALMOST HAD PANIC ATTACK after having teeth pulled, had headache after most recent lithotripsy Past Psychological History: Anxiety Smoking Status: Former smoker Past Alcohol Use History: None Reported Additional Past Alcohol Use History / Comment(s): QUIT SMOKING 2 YEARS AGO-USING PATCH, smoked for 30 yrs. Past Drug Use History: Marijuana - Past Family History Brother(s) Family Medical History: Cancer Father Family Medical History: Cancer General Exam General appearance: alert, in no apparent distress Head exam: Present: atraumatic, normocephalic Eye exam: Present: normal appearance. Absent: scleral icterus, conjunctival injection Neck exam: Present: normal inspection Respiratory exam: Present: wheezes. Absent: respiratory distress, rales, rhonchi, stridor, accessory muscle use Cardiovascular Exam: Present: normal rhythm, tachycardia, normal heart sounds. Absent: systolic murmur, diastolic murmur, rubs, gallop GI/Abdominal exam: Present: soft. Absent: distended, tenderness, guarding, rebound, rigid, mass Extremities exam: Present: normal inspection, normal capillary refill. Absent: pedal edema, calf tenderness Back exam: Present: normal inspection. Absent: CVA tenderness (R), CVA tenderness (L) Neurological exam: Present: alert Skin exam: Present: warm, dry, intact, normal color. Absent: rash Course Vital Signs 11/01/23 11/01/23 11/01/23 00:35 00:44 01:43 Temperature 98.6 F Pulse Rate 133 H 123 H Respiratory 20 20 20 Rate Blood Pressure 117/63 114/77 O2 Sat by Pulse 97 96 Oximetry 11/01/23 11/01/23 11/01/23 02:00 03:11 03:22 Temperature Pulse Rate 102 H 120 H 123 H Respiratory 20 Rate Blood Pressure 96/63 O2 Sat by Pulse 97 Oximetry 11/01/23 11/01/23 04:00 06:00 Temperature Pulse Rate 112 H 93 Respiratory 20 20 Rate Blood Pressure 92/62 108/64 O2 Sat by Pulse 97 98 Oximetry Medical Decision Making - Medical Decision Making Patient is 63-year-old woman with history of asthma/COPD who is on home oxygen at 2 L nasal cannula. She had worsening dyspnea tonight. She has been given steroids and nebulized treatments and still not having improvement back to her baseline. Will admit patient for continued steroid and nebulized medications and as well as pulmonology consultation. The patient no longer in distress at time of admission. She has had clinical improvement in her wheezing Patient had chest x-ray that I interpreted as negative for acute infiltrate, pneumothorax, congestive heart failure. - Lab Data Result diagrams: 11/01/23 01:13 11/01/23 01:13 Lab Results 11/01/23 11/01/23 11/01/23 Range/Units 01:13 01:13 01:13 WBC 10.1 (3.8-10.6) k/uL RBC 5.27 (3.80-5.40) m/uL Hgb 12.9 (11.4-16.0) gm/dL Hct 43.0 (34.0-46.0) % MCV 81.7 (80.0-100.0) fL MCH 24.5 L (25.0-35.0) pg MCHC 29.9 L (31.0-37.0) g/dL RDW 13.9 (11.5-15.5) % Plt Count 420 (150-450) k/uL MPV 7.6 Neutrophils % 64 % Lymphocytes % 20 % Monocytes % 8 % Eosinophils % 5 % Basophils % 1 % Neutrophils # 6.4 (1.3-7.7) k/uL Lymphocytes # 2.0 (1.0-4.8) k/uL Monocytes # 0.8 (0-1.0) k/uL Eosinophils # 0.5 (0-0.7) k/uL Basophils # 0.1 (0-0.2) k/uL Hypochromasia Slight PT 10.0 (10.0-12.5) sec INR 0.9 (<1.2) APTT 23.6 (22.0-30.0) sec D-Dimer 0.40 (<0.60) mg/L FEU Sodium 134 L (137-145) mmol/L Potassium 4.7 (3.5-5.1) mmol/L Chloride 100 (98-107) mmol/L Carbon Dioxide 26 (22-30) mmol/L Anion Gap 8 mmol/L BUN 22 H (7-17) mg/dL Creatinine 0.73 (0.52-1.04) mg/dL Est GFR (CKD-EPI)AfAm >90 (>60 ml/min/1.73 sqM) Est GFR (CKD-EPI)NonAf 88 (>60 ml/min/1.73 sqM) Glucose 124 H (74-99) mg/dL Plasma Lactic Acid Casey (0.7-2.0) mmol/L Calcium 8.7 (8.4-10.2) mg/dL Total Bilirubin 0.6 (0.2-1.3) mg/dL AST 30 (14-36) U/L ALT 18 (4-34) U/L Alkaline Phosphatase 97 (38-126) U/L Troponin I (0.000-0.034) ng/mL NT-Pro-B Natriuret Pep 69 pg/mL Total Protein 6.9 (6.3-8.2) g/dL Albumin 3.8 (3.5-5.0) g/dL Influenza Type A (PCR) (Not Detectd) Influenza Type B (PCR) (Not Detectd) RSV (PCR) (Not Detectd) SARS-CoV-2 (PCR) (Not Detectd) 11/01/23 11/01/23 11/01/23 Range/Units 01:13 01:13 01:13 WBC (3.8-10.6) k/uL RBC (3.80-5.40) m/uL Hgb (11.4-16.0) gm/dL Hct (34.0-46.0) % MCV (80.0-100.0) fL MCH (25.0-35.0) pg MCHC (31.0-37.0) g/dL RDW (11.5-15.5) % Plt Count (150-450) k/uL MPV Neutrophils % % Lymphocytes % % Monocytes % % Eosinophils % % Basophils % % Neutrophils # (1.3-7.7) k/uL Lymphocytes # (1.0-4.8) k/uL Monocytes # (0-1.0) k/uL Eosinophils # (0-0.7) k/uL Basophils # (0-0.2) k/uL Hypochromasia PT (10.0-12.5) sec INR (<1.2) APTT (22.0-30.0) sec D-Dimer (<0.60) mg/L FEU Sodium (137-145) mmol/L Potassium (3.5-5.1) mmol/L Chloride (98-107) mmol/L Carbon Dioxide (22-30) mmol/L Anion Gap mmol/L BUN (7-17) mg/dL Creatinine (0.52-1.04) mg/dL Est GFR (CKD-EPI)AfAm (>60 ml/min/1.73 sqM) Est GFR (CKD-EPI)NonAf (>60 ml/min/1.73 sqM) Glucose (74-99) mg/dL Plasma Lactic Acid Casey 1.9 (0.7-2.0) mmol/L Calcium (8.4-10.2) mg/dL Total Bilirubin (0.2-1.3) mg/dL AST (14-36) U/L ALT (4-34) U/L Alkaline Phosphatase (38-126) U/L Troponin I <0.012 (0.000-0.034) ng/mL NT-Pro-B Natriuret Pep pg/mL Total Protein (6.3-8.2) g/dL Albumin (3.5-5.0) g/dL Influenza Type A (PCR) Not Detected (Not Detectd) Influenza Type B (PCR) Not Detected (Not Detectd) RSV (PCR) Not Detected (Not Detectd) SARS-CoV-2 (PCR) Not Detected (Not Detectd) - EKG Data -: EKG Interpreted by Oh EKG shows normal: sinus rhythm, axis (Normal), intervals (Normal), QRS complexes (Voltage QRS complex) Rate: tachycardia (Rate 132 bpm) Disposition Clinical Impression: COPD (chronic obstructive pulmonary disease), Sinus tachycardia Disposition: ADMITTED IP TO THIS HOSP Condition: Good Is patient prescribed a controlled substance at d/c from ED?: No
[2023-11-01 01:31] LABS: Basophils # (A) 0.1 k/uL (0-0.2); Basophils % (A) 1 %; Eosinophils # (A) 0.5 k/uL (0-0.7); Eosinophils % (A) 5 %; HGB 12.9 gm/dL (11.4-16.0); Hypochromasia Slight; Lymphocytes % (A) 20 %; MCH 24.5 pg (25.0-35.0); MCHC 29.9 g/dL (31.0-37.0); MCV 81.7 fL (80.0-100.0); Mean Platelet Volume 7.6; Monocytes # (A) 0.8 k/uL (0-1.0); Monocytes % (A) 8 %; Neutrophils # (A) 6.4 k/uL (1.3-7.7); Neutrophils % (A) 64 %; Platelet Count 420 k/uL (150-450); RBC 5.27 m/uL (3.80-5.40); RDW 13.9 % (11.5-15.5); WBC 10.1 k/uL (3.8-10.6)
[2023-11-01] MEDS: predniSONE 20 MG TAB PO STA (01:46)
[2023-11-01] MEDS: ACETAMINOPHEN TAB 325 MG TAB PO STA (01:53)
--- NOTE | 2023-11-01 01:53 | XR ---
EXAM: XR Chest, 2 Views CLINICAL HISTORY: ITS.REASON XR Reason: difficulty breathing TECHNIQUE: Frontal and lateral views of the chest. COMPARISON: No relevant prior studies available. FINDINGS: Lungs: No consolidation or mass. Pleural space: No effusion. Heart: cardiomegaly. Bones/joints: No acute findings. IMPRESSION: No acute cardiopulmonary process.
[2023-11-01 01:56] LABS: INR 0.9 (<1.2); Partial Thromboplastin Time 23.6 sec (22.0-30.0)
[2023-11-01 02:09] LABS: ALT 18 U/L (4-34); AST 30 U/L (14-36); African American GFR (CKD) >90 (>60 ml/min/1.73 sqM); Albumin 3.8 g/dL (3.5-5.0); Alkaline Phosphatase 97 U/L (38-126); Anion Gap 8 mmol/L; Blood Urea Nitrogen 22 mg/dL (7-17); Calcium 8.7 mg/dL (8.4-10.2); Carbon Dioxide 26 mmol/L (22-30); Chloride 100 mmol/L (98-107); Glucose 124 mg/dL (74-99); Non-African American GFR(CKD) 88 (>60 ml/min/1.73 sqM); Potassium 4.7 mmol/L (3.5-5.1); Sodium 134 mmol/L (137-145); Total Bilirubin 0.6 mg/dL (0.2-1.3); Total Protein 6.9 g/dL (6.3-8.2)
[2023-11-01 02:18] LABS: NT-Pro-B-Type Natriuretic Pept 69 pg/mL
[2023-11-01] MEDS: IPRATROPIUM-ALBUTEROL 3 ML NEB INHALATION STA (03:10)
[2023-11-01] MEDS ORDERED: NALOXONE 0.4 MG/ML 1 ML VIAL IVP PRN (05:24)
[2023-11-01] MEDS: AZITHROMYCIN 500 MG TAB PO SCH (08:35)
[2023-11-01] MEDS: predniSONE 20 MG TAB PO SCH (08:35)
[2023-11-01] MEDS: IPRATROPIUM-ALBUTEROL 3 ML NEB INHALATION SCH (08:40)
--- NOTE | 2023-11-01 10:54 | P.HPIM ---
History of Present Illness H&P Date: 11/01/23 History of present illness; patient is a 63-year-old lady with past medical history significant for COPD, hypertension was brought to the ER for for worsening shortness of breath for the last week. Patient stated that she normally uses 2 L of oxygen at home but has been feeling more short of breath lately. Patient stated that she gets short of breath on exertion. Not able to carry out any activity without getting short of breath. Denies any chest pain. There is no complaint of cough. Patient denies any palpitations. There is no complaint of orthopnea or PND. Patient denies any fever or chills. Because of worsening shortness of breath, patient came to the ER Initial lab work done in the ER showed WBC 10.1, hemoglobin 12.9, platelet count 420, D-dimer 0.40, sodium 134, potassium 4.7, BUN 22, creatinine 0.73, glucose 124, AST 30, ALT 18, troponin 0.012 Influenza A not detected Influenza B not detected RSV not detected COVID-19 not detected EKG done in the ER showed heart rate of 130, no ST segment elevation or depression seen, no T-wave inversions seen. Chest x-ray done in the ER no acute pulmonary process Patient admitted to internal medicine service REVIEW OF SYSTEMS: CONSTITUTIONAL: No fever, no malaise, no fatigue. HEENT: No recent visual problems or hearing problems. Denied any sore throat. CARDIOVASCULAR: As mentioned HPI PULMONARY: As mentioned HPI GASTROINTESTINAL: No diarrhea, no nausea, no vomiting, no abdominal pain. NEUROLOGICAL: No headaches, no weakness, no numbness. HEMATOLOGICAL: Denies any bleeding or petechiae. GENITOURINARY: Denies any burning micturition, frequency, or urgency. MUSCULOSKELETAL/RHEUMATOLOGICAL: Denies any joint pain, swelling, or any muscle pain. ENDOCRINE: Denies any polyuria or polydipsia. The rest of the 14-point review of systems is negative. PHYSICAL EXAMINATION: GENERAL: The patient is alert and oriented x3, not in any acute distress. Well developed, well nourished. HEENT: Pupils are round and equally reacting to light. EOMI. No scleral icterus. No conjunctival pallor. Normocephalic, atraumatic. No pharyngeal erythema. No thyromegaly. CARDIOVASCULAR: S1 and S2 present. No murmurs, rubs, or gallops. PULMONARY: Coarse breath sound bilaterally, bilateral expiratory wheeze audible ABDOMEN: Soft, nontender, nondistended, normoactive bowel sounds. No palpable organomegaly. MUSCULOSKELETAL: No joint swelling or deformity. EXTREMITIES: No cyanosis, clubbing, or pedal edema. NEUROLOGICAL: Gross neurological examination did not reveal any focal deficits. SKIN: No rashes. Assessment and plan Acute COPD exacerbation Chronic hypoxic respiratory failure Hypertension Hyperlipidemia Monitor vital signs Monitor CBC Monitor CMP Continue telemetry monitoring Continue oxygen supplementation Continue breathing treatments Continue prednisone Start azithromycin Continue added Mucinex Resume home meds Consult pulmonology Labs and medication were reviewed.. Continue same treatment. Continue with symptomatic treatment. Resume home medication. Monitor labs and vitals. DVT and GI prophylaxis. Further recommendations as per clinical course of the patient Dictation was produced using [employer] dictation software. please excuse any grammatical, word or spelling errors. Past Medical History Past Medical History: COPD, Hypertension Additional Past Medical History / Comment(s): LEFT ARM LIPOMA, right side kidney stone, uses O2 @1-2l prn History of Any Multi-Drug Resistant Organisms: None Reported Additional Past Surgical History / Comment(s): WISDOM TEETH, colonoscopy, recent lithotripsy right side Past Anesthesia/Blood Transfusion Reactions: No Reported Reaction Additional Past Anesthesia/Blood Transfusion Reaction / Comment(s): STATES HEART WAS BEATING VERY FAST AND ALMOST HAD PANIC ATTACK after having teeth pulled, had headache after most recent lithotripsy Past Psychological History: Anxiety Smoking Status: Former smoker Past Alcohol Use History: None Reported Additional Past Alcohol Use History / Comment(s): QUIT SMOKING 2 YEARS AGO-USING PATCH, smoked for 30 yrs. Past Drug Use History: Marijuana - Past Family History Brother(s) Family Medical History: Cancer Father Family Medical History: Cancer Medications and Allergies Home Medications Medication Instructions Recorded Confirmed Type Montelukast [Singulair] 10 mg PO HS 12/14/15 11/01/23 History Diltiazem Cd [Cardizem CD] 240 mg PO DAILY 12/15/15 11/01/23 History lisinopriL [Prinivil] 20 mg PO DAILY 10/18/22 11/01/23 History Atorvastatin [Lipitor] 20 mg PO DAILY 12/31/22 11/01/23 History Budesonide/Formoterol Fumarate 2 puff INHALATION RT-BID 12/31/22 11/01/23 History [Symbicort 160-4.5 Mcg Inhaler] Ergocalciferol [Vitamin D2 (1250 1,250 mcg PO MO 12/31/22 11/01/23 History Mcg = 84112 Iu)] Albuterol Sulfate [Ventolin HFA] 2 puff INHALATION RT-Q6H PRN 11/01/23 11/01/23 History Furosemide [Lasix] 40 mg PO DAILY 11/01/23 11/01/23 History Nitroglycerin Sl Tabs [Nitrostat] 0.4 mg SUBLINGUAL Q5M PRN 11/01/23 11/01/23 History Potassium Chloride [Klor-Con M10] 10 meq PO DAILY 11/01/23 11/01/23 History Allergies Allergy/AdvReac Type Severity Reaction Status Date / Time sulfamethoxazole Allergy Rash/Hives Verified 11/01/23 09:09 [From Bactrim] tramadol Allergy Rash/Hives Verified 11/01/23 09:09 trimethoprim [From Bactrim] Allergy Rash/Hives Verified 11/01/23 09:09 furosemide [From Lasix] AdvReac MUSCLE Verified 11/01/23 09:09 SPASMS Physical Exam Vitals: Vital Signs Temp Pulse Resp BP Pulse Ox 11/01/23 08:54 105 H 11/01/23 08:40 105 H 95 11/01/23 08:33 98.4 F 98 18 130/73 97 11/01/23 07:46 16 114/68 97 11/01/23 06:00 93 20 108/64 98 11/01/23 04:00 112 H 20 92/62 97 11/01/23 03:22 123 H 11/01/23 03:11 120 H 11/01/23 02:00 102 H 20 96/63 97 11/01/23 01:43 123 H 20 114/77 96 11/01/23 00:44 20 11/01/23 00:35 98.6 F 133 H 20 117/63 97 Intake and Output 10/31/23 11/01/23 11/01/23 22:59 06:59 14:59 Other: Weight 100.698 kg Results CBC & Chem 7: 11/01/23 01:13 11/01/23 01:13 Labs: Abnormal Lab Results - Last 24 Hours (Table) 11/01/23 11/01/23 Range/Units 01:13 01:13 MCH 24.5 L (25.0-35.0) pg MCHC 29.9 L (31.0-37.0) g/dL Sodium 134 L (137-145) mmol/L BUN 22 H (7-17) mg/dL Glucose 124 H (74-99) mg/dL
[2023-11-01] MEDS: ATORVASTATIN 20 MG TAB PO SCH (11:01)
[2023-11-01] MEDS: lisinopriL 20 MG TAB PO SCH (11:01)
[2023-11-01] MEDS: DILTIAZEM CD 240 MG CAP.ER.24H PO SCH (11:01)
[2023-11-01] MEDS: FUROSEMIDE 40 MG TAB PO SCH (11:01)
--- NOTE | 2023-11-01 13:52 | P.CNPUL ---
History of Present Illness Consult date: 11/01/23 Requesting physician: Jay England Reason for consult: dyspnea, COPD Chief complaint: Shortness of breath History of present illness: This is a pleasant 63-year-old female patient with a known history of hypertension, hyperlipidemia, oxygen dependent chronic obstructive pulmonary disease, former smoker. She presented here to the emergency room early this morning with complaints of increasing shortness of breath, cough and congestion. Chest x-ray reveals no acute pulmonary process. White count 10.1. Hemoglobin 12.9. Platelets 420. Sodium 134. Potassium 4.7. Bicarb 26. BUN 22. Creatin ine 0.73. D-dimer 0.40. Troponin negative. Viral screen negative. She is seen today in consultation in the emergency department. She is currently sitting up on the stretcher. Awake and alert in no acute distress. She does have some dyspnea with minimal exertion. Dyspnea with conversation. She has a 30-year smoking history but quit several years ago. She is maintained on Symbicort, Singulair and albuterol in the outpatient setting. She is maintaining O2 saturations in the mid 90s on 2 L/min per nasal cannula. She is afebrile. Slightly tachycardic, sinus. Review of Systems REVIEW OF SYSTEMS: CONSTITUTIONAL: Denies any recent significant weight loss or weight gain. EYES: Denies change in vision. EARS, NOSE, MOUTH, THROAT: Denies headaches, denies sore throat. CARDIOVASCULAR: Denies chest pain, palpitations or syncopal episodes. RESPIRATORY: Positive for shortness of breath, cough, congestion no hemoptysis. GASTROINTESTINAL: Denies change in appetite, denies abdominal pain GENITOURINARY: Denies hematuria, denies infections. MUSKULOSKELETAL: Denies pain, denies swelling. INTEGUMENTARY: Denies rash, denies eczema. NEUROLOGICAL: Denies recent memory loss, no recent seizure activity. PSYCHIATRIC: Denies anxiety, denies depression. HEMATOLOGIC/LYMPHATIC: Denies anemia, denies enlarged lymph nodes. Past Medical History Past Medical History: COPD, Hypertension Additional Past Medical History / Comment(s): LEFT ARM LIPOMA, right side kidney stone, uses O2 @1-2l prn History of Any Multi-Drug Resistant Organisms: None Reported Additional Past Surgical History / Comment(s): WISDOM TEETH, colonoscopy, recent lithotripsy right side Past Anesthesia/Blood Transfusion Reactions: No Reported Reaction Additional Past Anesthesia/Blood Transfusion Reaction / Comment(s): STATES HEART WAS BEATING VERY FAST AND ALMOST HAD PANIC ATTACK after having teeth pulled, had headache after most recent lithotripsy Past Psychological History: Anxiety Smoking Status: Former smoker Past Alcohol Use History: None Reported Additional Past Alcohol Use History / Comment(s): QUIT SMOKING 2 YEARS AGO-USING PATCH, smoked for 30 yrs. Past Drug Use History: Marijuana - Past Family History Brother(s) Family Medical History: Cancer Father Family Medical History: Cancer Medications and Allergies Home Medications Medication Instructions Recorded Confirmed Type Montelukast [Singulair] 10 mg PO HS 12/14/15 11/01/23 History Diltiazem Cd [Cardizem CD] 240 mg PO DAILY 12/15/15 11/01/23 History lisinopriL [Prinivil] 20 mg PO DAILY 10/18/22 11/01/23 History Atorvastatin [Lipitor] 20 mg PO DAILY 12/31/22 11/01/23 History Budesonide/Formoterol Fumarate 2 puff INHALATION RT-BID 12/31/22 11/01/23 History [Symbicort 160-4.5 Mcg Inhaler] Ergocalciferol [Vitamin D2 (1250 1,250 mcg PO MO 12/31/22 11/01/23 History Mcg = 29071 Iu)] Albuterol Sulfate [Ventolin HFA] 2 puff INHALATION RT-Q6H PRN 11/01/23 11/01/23 History Furosemide [Lasix] 40 mg PO DAILY 11/01/23 11/01/23 History Nitroglycerin Sl Tabs [Nitrostat] 0.4 mg SUBLINGUAL Q5M PRN 11/01/23 11/01/23 History Potassium Chloride [Klor-Con M10] 10 meq PO DAILY 11/01/23 11/01/23 History Allergies Allergy/AdvReac Type Severity Reaction Status Date / Time sulfamethoxazole Allergy Rash/Hives Verified 11/01/23 09:09 [From Bactrim] tramadol Allergy Rash/Hives Verified 11/01/23 09:09 trimethoprim [From Bactrim] Allergy Rash/Hives Verified 11/01/23 09:09 furosemide [From Lasix] AdvReac MUSCLE Verified 11/01/23 09:09 SPASMS Physical Exam Vitals: Vital Signs Temp Pulse Resp BP Pulse Ox 11/01/23 13:00 106 H 20 106/65 95 11/01/23 12:09 100 11/01/23 12:00 98.2 F 105 H 22 118/70 98 11/01/23 10:49 102 H 18 134/82 95 11/01/23 08:54 105 H 11/01/23 08:40 105 H 95 11/01/23 08:33 98.4 F 98 18 130/73 97 11/01/23 07:46 16 114/68 97 11/01/23 06:00 93 20 108/64 98 11/01/23 04:00 112 H 20 92/62 97 11/01/23 03:22 123 H 11/01/23 03:11 120 H 11/01/23 02:00 102 H 20 96/63 97 11/01/23 01:43 123 H 20 114/77 96 11/01/23 00:44 20 11/01/23 00:35 98.6 F 133 H 20 117/63 97 Intake and Output 10/31/23 11/01/23 11/01/23 22:59 06:59 14:59 Output Total 950 Balance -950 Output: Urine 950 Other: Weight 100.698 kg GENERAL EXAM: Alert, obese, pleasant 63-year-old female, on 2 L nasal cannula, fairly comfortable in no apparent distress. HEAD: Normocephalic. EYES: Normal reaction of pupils, equal size. NOSE: Clear with pink turbinates. THROAT: No erythema or exudates. NECK: No masses, no JVD. CHEST: No chest wall deformity. LUNGS: Equal air entry with bilateral end expiratory wheeze, diminished throughout. CVS: S1 and S2 normal with no audible murmur, regular rhythm. ABDOMEN: No hepatosplenomegaly, normal bowel sounds, no guarding or rigidity. SPINE: No scoliosis or deformity SKIN: No rashes CENTRAL NERVOUS SYSTEM: No focal deficits, tone is normal in all 4 extremities. EXTREMITIES: There is no peripheral edema. No clubbing, no cyanosis. Peripheral pulses are intact. Results - Laboratory Findings CBC and BMP: 11/01/23 01:13 11/01/23 01:13 PT/INR, D-dimer PT 10.0 sec (10.0-12.5) 11/01/23 01:13 INR 0.9 (<1.2) 11/01/23 01:13 D-Dimer 0.40 mg/L FEU (<0.60) 11/01/23 01:13 Abnormal lab findings: Abnormal Labs 11/01/23 11/01/23 01:13 01:13 MCH 24.5 L MCHC 29.9 L Sodium 134 L BUN 22 H Glucose 124 H - Diagnostic Findings Chest x-ray: image reviewed (No acute pulmonary process) Assessment and Plan Assessment: Acute exacerbation of severe oxygen dependent chronic obstructive pulmonary disease. Chest x-ray reveals no acute process Chronic hypoxic respiratory failure maintained on oxygen at 2 L/min per nasal cannula in the outpatient setting Former smoker of greater than 30 years, quit several years ago Obesity Hypertension Hyperlipidemia History of anxiety History of marijuana use Plan: The patient was seen and evaluated Chest x-ray, labs and medications reviewed Continue Symbicort and DuoNeb inhalations Add Solu-Medrol 60 mg every 6 hours Titrate the FiO2 as tolerated We will continue to follow and make further recommendations based on her clinical status I have personally seen and examined the patient, performed the documentation and the assessment and plan as written. Number of minutes spent on the visit: 20.
[2023-11-01] MEDS: methylPREDNISolone SOD SUCCI 125 MG/2 ML VIAL IV SCH (17:37)
[2023-11-01] MEDS: SYMBICORT 160-4.5 MCG INHALER INHALATION SCH (19:38)
[2023-11-01] MEDS: MONTELUKAST 10 MG TAB PO SCH (20:30)
[2023-11-02] MEDS: predniSONE 20 MG TAB PO SCH (09:09)
[2023-11-02] MEDS: ACETAMINOPHEN TAB 325 MG TAB PO PRN (11:07)
[2023-11-02] MEDS: METOPROLOL TARTRATE 25 MG TAB PO SCH (12:28)
--- NOTE | 2023-11-02 12:47 | P.PN ---
Subjective Progress Note Date: 11/02/23 patient is a 63-year-old lady with past medical history significant for COPD, hypertension was brought to the ER for for worsening shortness of breath for the last week. Patient stated that she normally uses 2 L of oxygen at home but has been feeling more short of breath lately. Patient stated that she gets short of breath on exertion. Not able to carry out any activity without getting short of breath. Denies any chest pain. There is no complaint of cough. Patient denies any palpitations. There is no complaint of orthopnea or PND. Patient denies any fever or chills. Because of worsening shortness of breath, patient came to the ER Initial lab work done in the ER showed WBC 10.1, hemoglobin 12.9, platelet count 420, D-dimer 0.40, sodium 134, potassium 4.7, BUN 22, creatinine 0.73, glucose 124, AST 30, ALT 18, troponin 0.012 Influenza A not detected Influenza B not detected RSV not detected COVID-19 not detected EKG done in the ER showed heart rate of 130, no ST segment elevation or dep ression seen, no T-wave inversions seen. Chest x-ray done in the ER no acute pulmonary process Patient admitted to internal medicine service 11/01. Patient seen and examined. States breathing is improved. Gets short of breath on exertion. Vital signs stable REVIEW OF SYSTEMS: CONSTITUTIONAL: No fever, no malaise,. CARDIOVASCULAR: No chest pain, no palpitations, no syncope. PULMONARY: As mentioned above GASTROINTESTINAL: No diarrhea, no nausea, no vomiting, no abdominal pain. NEUROLOGICAL: No headaches, no weakness, PHYSICAL EXAMINATION: GENERAL: The patient is alert and oriented x3, not in any acute distress. Well developed, well nourished. HEENT: Pupils are round and equally reacting to light. EOMI. No scleral icterus. No conjunctival pallor. Normocephalic, atraumatic. No pharyngeal erythema. No thyromegaly. CARDIOVASCULAR: S1 and S2 present. No murmurs, rubs, or gallops. PULMONARY: Coarse breath sound bilaterally, no wheezing or crackles. ABDOMEN: Soft, nontender, nondistended, normoactive bowel sounds. No palpable organomegaly. MUSCULOSKELETAL: No joint swelling or deformity. EXTREMITIES: No cyanosis, clubbing, or pedal edema. NEUROLOGICAL: Gross neurological examination did not reveal any focal deficits. SKIN: No rashes. Assessment and plan Acute COPD exacerbation Chronic hypoxic respiratory failure Hypertension Hyperlipidemia Monitor vital signs Monitor CBC Monitor CMP Continue telemetry monitoring Continue oxygen supplementation Continue breathing treatments Continue prednisone Continue azithromycin Continue added Mucinex Pulmonary following Cardiology consulted Labs and medication were reviewed.. Continue same treatment. Continue with sy mptomatic treatment. Resume home medication. Monitor labs and vitals. DVT and GI prophylaxis. Further recommendations as per clinical course of the patient Dictation was produced using [employer] dictation software. please excuse any grammatical, word or spelling errors. Objective - Vital Signs Vital signs: Vital Signs Temp 97.7 F 11/02/23 07:00 Pulse 80 11/02/23 07:00 Resp 22 11/02/23 07:00 BP 111/68 11/02/23 07:00 Pulse Ox 98 11/02/23 07:00 FiO2 Intake & Output 11/01/23 11/02/23 11/02/23 18:59 06:59 18:59 Intake Total 118 Output Total 1250 Balance -1132 Weight 100.698 kg Intake: Oral 118 Output: Urine 1250 Other: # Voids 2 - Labs CBC & Chem 7: 11/01/23 01:13 11/01/23 01:13
--- NOTE | 2023-11-02 13:49 | P.CRDCN ---
History of Present Illness Consult date: 11/02/23 Reason for Consult (text): Tachycardia History of present illness: History of present illness: This is a 63-year-old female patient of Dr. Ghotra with a past medical history of hypertension, hyperlipidemia, COPD, prior tobacco use and dependence since quit, chronic pain on narcotics which she has also stopped, history of sinus tachycardia. We have been asked to evaluate the patient for tachycardia. Patient has ongoing difficulty with COPD. She states she was at home and stood up and her heart rate jumped up to 160 as she checked it on her pulse ox and her pulse ox was reading 95 for oxygenation. She states the rapid heart rate is happening more often. She is completely off narcotics at this time. EKG sinus tachycardia 132 bpm Chest x-ray: No acute process CBC is unremarkable. INR and D-dimer are normal. Sodium 134, potassium 4.7, BUN 22 creatinine 0.73. Glucose 124. Troponin negative x 1. proBNP 69. Influenza A, influenza B, RSV, COVID-19 not detected. Home cardiac medications: Atorvastatin 20 mg daily, Cardizem CD 240 mg daily, Lasix 40 mg daily, lisinopril 20 mg daily, Nitrostat as needed, potassium chloride 10 mill equivalents daily. Event monitor completed 09/24 - 10/01/2023 revealed baseline sinus tachycardia with heart rate of 101.6 bpm. No critical no serious and 1 stable event occurred. Cardiac catheterization performed on 10/11/[address] Ghotra revealed normal coronary arteries. Elevated left-sided filling pressures. Echocardiogram performed in the office on 03/17/2020 revealed EF of 60%. Filiberto rderline concentric left ventricular hypertrophy. Mild mitral regurgitation. Mild tricuspid regurgitation. Normal pulmonary artery systolic pressure. Mild pulmonic regurgitation. Review Of Systems: At the time of my exam: CONSTITUTIONAL: Denies fever or chills. HEENT: Denies blurred vision, vision changes, or eye pain. Denies hemoptysis CARDIOVASCULAR: Denies chest pain. Denies orthopnea. Denies PND. Denies palpitations RESPIRATORY: Reports shortness of breath. GASTROINTESTINAL: Denies abdominal pain. Denies nausea or vomiting. HEMATOLOGIC: Denies bleeding disorders. GENITOURINARY: Denies any blood in urine. SKIN: Denies pruitis. Denies rash. Physical examination: Gen: This is a 63-year-old female in no acute distress VS: reviewed, blood pressure 106/67, heart rate 89, pulse ox 98% on 2 L nasal cannula. HEENT: Head is atraumatic, normocephalic. Pupils equal, round. Sclerae is a nicteric. NECK: Supple. No JVD. LUNGS: Bilateral wheezing. No intercostal retractions. HEART: Regular rate and rhythm. No murmur. ABDOMEN: Soft No tenderness. EXTREMITIES: No pedal edema. No calf tenderness. NEUROLOGICAL: Patient is awake, alert and oriented x3. Assessment: Sinus tachycardia COPD exacerbation Hypertension Hyperlipidemia Prior tobacco use and dependence Chronic pain off narcotics Plan: Resume patient's home cardiac medications Start patient on metoprolol tartrate 25 mg 3 times daily Obtain TSH/free T4 levels Obtain 2-D echocardiogram and Doppler study to assess cardiac structure and function Further recommendations to follow based upon clinical course Thank you kindly for this consultation. Nurse practitioner note has been reviewed, I agree with documented findings and plan of care. Patient was seen and examined. Past Medical History Past Medical History: COPD, Hypertension Additional Past Medical History / Comment(s): LEFT ARM LIPOMA, uses O2 @1-2l prn History of Any Multi-Drug Resistant Organisms: None Reported Additional Past Surgical History / Comment(s): WISDOM TEETH, colonoscopy, recent lithotripsy right side Past Anesthesia/Blood Transfusion Reactions: No Reported Reaction Additional Past Anesthesia/Blood Transfusion Reaction / Comment(s): STATES HEART WAS BEATING VERY FAST AND ALMOST HAD PANIC ATTACK after having teeth pulled, had headache after most recent lithotripsy Past Psychological History: Anxiety Smoking Status: Former smoker Past Alcohol Use History: None Reported Additional Past Alcohol Use History / Comment(s): QUIT SMOKING 2 YEARS AGO-USING PATCH, smoked for 30 yrs. Past Drug Use History: Marijuana - Past Family History Brother(s) Family Medical History: Cancer Father Family Medical History: Cancer Medications and Allergies Home Medications Medication Instructions Recorded Confirmed Type Montelukast [Singulair] 10 mg PO HS 12/14/15 11/01/23 History Diltiazem Cd [Cardizem CD] 240 mg PO DAILY 12/15/15 11/01/23 History lisinopriL [Prinivil] 20 mg PO DAILY 10/18/22 11/01/23 History Atorvastatin [Lipitor] 20 mg PO DAILY 12/31/22 11/01/23 History Budesonide/Formoterol Fumarate 2 puff INHALATION RT-BID 12/31/22 11/01/23 History [Symbicort 160-4.5 Mcg Inhaler] Ergocalciferol [Vitamin D2 (1250 1,250 mcg PO MO 12/31/22 11/01/23 History Mcg = 96324 Iu)] Albuterol Sulfate [Ventolin HFA] 2 puff INHALATION RT-Q6H PRN 11/01/23 11/01/23 History Furosemide [Lasix] 40 mg PO DAILY 11/01/23 11/01/23 History Nitroglycerin Sl Tabs [Nitrostat] 0.4 mg SUBLINGUAL Q5M PRN 11/01/23 11/01/23 History Potassium Chloride [Klor-Con M10] 10 meq PO DAILY 11/01/23 11/01/23 History Allergies Allergy/AdvReac Type Severity Reaction Status Date / Time sulfamethoxazole Allergy Rash/Hives Verified 11/01/23 09:09 [From Bactrim] tramadol Allergy Rash/Hives Verified 11/01/23 09:09 trimethoprim [From Bactrim] Allergy Rash/Hives Verified 11/01/23 09:09 furosemide [From Lasix] AdvReac MUSCLE Verified 11/01/23 09:09 SPASMS Physical Exam Vitals: Vital Signs Temp Pulse Pulse Resp BP BP BP 11/02/23 11:07 100 11/02/23 10:51 96 11/02/23 07:00 97.7 F 80 22 111/68 11/02/23 02:00 97.5 F L 87 14 100/62 11/01/23 20:00 97.8 F 76 16 105/66 11/01/23 19:49 102 H 11/01/23 19:40 102 H 11/01/23 16:52 102 H 11/01/23 16:47 97.9 F 88 20 94/65 11/01/23 16:44 106 H 11/01/23 16:00 97.9 F 85 18 110/67 11/01/23 15:00 86 18 107/68 11/01/23 14:00 86 20 131/80 11/01/23 13:00 106 H 20 106/65 11/01/23 12:09 100 Pulse Ox 11/02/23 11:07 11/02/23 10:51 11/02/23 07:00 98 11/02/23 02:00 97 11/01/23 20:00 96 11/01/23 19:49 11/01/23 19:40 11/01/23 16:52 11/01/23 16:47 96 11/01/23 16:44 11/01/23 16:00 98 11/01/23 15:00 98 11/01/23 14:00 98 11/01/23 13:00 95 11/01/23 12:09 Intake and Output 11/01/23 11/02/23 11/02/23 22:59 06:59 14:59 Intake Total 118 Balance 118 Intake: Oral 118 Other: # Voids 2 Weight 100.698 kg Results 11/01/23 01:13 11/01/23 01:13 Current Medications Generic Name Dose Route Start Last Admin Trade Name Freq PRN Reason Stop Dose Admin Acetaminophen 650 mg 11/01/23 05:24 11/02/23 11:07 Acetaminophen Tab 325 Mg Tab PO 650 mg Q4HR PRN Administration Mild Pain or Fever > 100.5 Albuterol/Ipratropium 3 ml 11/01/23 08:00 11/02/23 10:51 Ipratropium-Albuterol 3 Ml Neb INHALATION 3 ml RT-QID ALE Administration Atorvastatin Calcium 20 mg 11/01/23 10:30 11/02/23 09:09 Atorvastatin 20 Mg Tab PO 20 mg DAILY ALE Administration Azithromycin 500 mg 11/01/23 09:00 11/02/23 09:09 Azithromycin 500 Mg Tab PO 11/03/23 09:01 500 mg DAILY ALE Administration Protocol Budesonide/Formoterol Fumarate 2 puff 11/01/23 20:00 11/02/23 10:51 Symbicort 160-4.5 Mcg Inhaler INHALATION 2 puff RT-BID ALE Administration Diltiazem HCl 240 mg 11/01/23 10:30 11/02/23 10:59 Diltiazem Cd 240 Mg Cap.Er.24h PO 240 mg DAILY ALE Administration Ergocalciferol 1,250 mcg 11/05/23 09:00 Ergocalciferol 1,250 Mcg (50,000 Iu) Capsule PO MO ALE Furosemide 40 mg 11/01/23 10:30 11/02/23 09:09 Furosemide 40 Mg Tab PO 40 mg DAILY ALE Administration Lisinopril 20 mg 11/01/23 10:30 11/02/23 09:09 Lisinopril 20 Mg Tab PO 20 mg DAILY ALE Administration Montelukast Sodium 10 mg 11/01/23 21:00 11/01/23 20:30 Montelukast 10 Mg Tab PO 10 mg HS ALE Administration Naloxone HCl 0.2 mg 11/01/23 05:24 Naloxone 0.4 Mg/Ml 1 Ml Vial IVP Q2M PRN Opioid Reversal Prednisone 40 mg 11/02/23 09:00 11/02/23 09:09 Prednisone 20 Mg Tab PO 40 mg DAILY ALE Administration Intake and Output 11/01/23 11/02/23 11/02/23 22:59 06:59 14:59 Intake Total 118 Balance 118 Intake: Oral 118 Other: # Voids 2 Weight 100.698 kg 11/01/23 01:13 11/01/23 01:13
--- NOTE | 2023-11-02 15:04 | P.PN ---
Subjective Progress Note Date: 11/02/23 This is a pleasant 63-year-old female patient with a known history of hypertension, hyperlipidemia, oxygen dependent chronic obstructive pulmonary disease, former smoker. She presented here to the emergency room early this morning with complaints of increasing shortness of breath, cough and congestion. Chest x-ray reveals no acute pulmonary process. White count 10.1. Hemoglobin 12.9. Platelets 420. Sodium 134. Potassium 4.7. Bicarb 26. BUN 22. Creatinine 0.73. D-dimer 0.40. Troponin negative. Viral screen negative. She is seen today in consultation in the emergency department. She is currently sitting up on the stretcher. Awake and alert in no acute distress. She does have some dyspnea with minimal exertion. Dyspnea with conversation. She has a 30-year smoking history but quit several years ago. She is maintained on Symbicort, Singulair and albuterol in the outpatient setting. She is maintaining O2 saturations in the mid 90s on 2 L/min per nasal cannula. She is afebrile. Slightly tachycardic, sinus. The patient is seen today November 02, 2023 in follow-up on the regular medical floor. She is currently sitting up in bed. Awake and alert in no acute distress. She denies any worsening shortness of breath, cough or congestion. She is feeling better. She still has some concerns regarding her tachycardia. She had been worked up in the outpatient setting with Dr. Ghotra. Her heart rate is better controlled today compared to yesterday. She is afebrile. Hemodynamically stable. Maintaining good O2 saturations in the upper 90s on 2 L/min per nasal cannula. She has been continued on DuoNeb inhalations, Solu- Medrol and Symbicort. Objective - Vital Signs Vital signs: Vital Signs Temp 98.3 F 11/02/23 14:46 Pulse 85 11/02/23 14:46 Resp 20 11/02/23 14:46 BP 105/54 11/02/23 14:46 Pulse Ox 98 11/02/23 14:46 FiO2 Intake & Output 11/01/23 11/02/23 11/02/23 18:59 06:59 18:59 Intake Total 118 118 Output Total 1250 Balance -1132 118 Weight 100.698 kg Intake: Oral 118 118 Output: Urine 1250 Other: # Voids 2 1 - Exam GENERAL EXAM: Alert, active, 63-year-old female, on 2 L nasal cannula, comfortable in no apparent distress. HEAD: Normocephalic. EYES: Normal reaction of pupils, equal size. NOSE: Clear with pink turbinates. THROAT: No erythema or exudates. NECK: No masses, no JVD. CHEST: No chest wall deformity. LUNGS: Equal air entry with no crackles, wheeze, rhonchi or dullness. CVS: S1 and S2 normal with no audible murmur, regular rhythm. ABDOMEN: No hepatosplenomegaly, normal bowel sounds, no guarding or rigidity. SPINE: No scoliosis or deformity SKIN: No rashes CENTRAL NERVOUS SYSTEM: No focal deficits, tone is normal in all 4 extremities. EXTREMITIES: There is no peripheral edema. No clubbing, no cyanosis. Peripheral pulses are intact. - Labs CBC & Chem 7: 11/01/23 01:13 11/01/23 01:13 Assessment and Plan Assessment: Acute exacerbation of severe oxygen dependent chronic obstructive pulmonary disease. Chest x-ray reveals no acute process Chronic hypoxic respiratory failure maintained on oxygen at 2 L/min per nasal cannula in the outpatient setting Former smoker of greater than 30 years, quit several years ago History of tachycardia, being followed in the outpatient setting Obesity Hypertension Hyperlipidemia History of anxiety History of marijuana use Plan: The patient was seen and evaluated Medications reviewed Continue Symbicort and DuoNeb inhalations Complete a prednisone taper Titrate the FiO2 as tolerated Cleared for discharge once cleared by cardiology Follow-up in our office in 1 week I have personally seen and examined the patient, performed the documentation and the assessment and plan as written. Number of minutes spent on the visit: 10.
[2023-11-03] MEDS: METOPROLOL SUCCINATE (ER) 25 MG TAB.ER.24H PO SCH (10:20)
--- NOTE | 2023-11-03 11:13 | P.PN ---
Subjective Progress Note Date: 11/03/23 This is a pleasant 63-year-old female patient with a known history of hypertension, hyperlipidemia, oxygen dependent chronic obstructive pulmonary disease, former smoker. She presented here to the emergency room early this morning with complaints of increasing shortness of breath, cough and congestion. Chest x-ray reveals no acute pulmonary process. White count 10.1. Hemoglobin 12.9. Platelets 420. Sodium 134. Potassium 4.7. Bicarb 26. BUN 22. Creatinine 0.73. D-dimer 0.40. Troponin negative. Viral screen negative. She is seen today in consultation in the emergency department. She is currently sitting up on the stretcher. Awake and alert in no acute distress. She does have some dyspnea with minimal exertion. Dyspnea with conversation. She has a 30-year smoking history but quit several years ago. She is maintained on Symbicort, Singulair and albuterol in the outpatient setting. She is maintaining O2 saturations in the mid 90s on 2 L/min per nasal cannula. She is afebrile. Slightly tachycardic, sinus. The patient is seen today November 02, 2023 in follow-up on the regular medical floor. She is currently sitting up in bed. Awake and alert in no acute distress. She denies any worsening shortness of breath, cough or congestion. She is feeling better. She still has some concerns regarding her tachycardia. She had been worked up in the outpatient setting with Dr. Ghotra. Her heart rate is better controlled today compared to yesterday. She is afebrile. Hemodynamically stable. Maintaining good O2 saturations in the upper 90s on 2 L/min per nasal cannula. She has been continued on DuoNeb inhalations, Solu- Medrol and Symbicort. The patient is seen today November 03, 2023 in follow-up on the regular medical floor. She is currently sitting up in bed. Awake and alert in no acute distress. Denies any worsening shortness of breath, cough or congestion. She is maintaining good O2 saturations in the 90s on 2 L/min per nasal cannula. She has been afebrile. Hemodynamically stable. She had been seen by cardiology regarding her tachycardia and Toprol XL was initiated addition to her Cardizem. Her heart rate is currently in the 70s. She is continued on DuoNeb ventilations, Symbicort, Singulair, prednisone taper. Remains on oral diuretics. Objective - Vital Signs Vital signs: Vital Signs Temp 97.6 F 11/03/23 07:00 Pulse 78 11/03/23 07:00 Resp 17 11/03/23 07:00 BP 123/74 11/03/23 07:00 Pulse Ox 97 11/03/23 07:00 FiO2 Intake & Output 11/02/23 11/03/23 11/03/23 18:59 06:59 18:59 Intake Total 236 118 Balance 236 118 Intake: Oral 236 118 Other: # Voids 1 2 - Exam GENERAL EXAM: Alert, 63-year-old female, on 2 L nasal cannula, sitting in bed, in no apparent distress. HEAD: Normocephalic. EYES: Normal reaction of pupils, equal size. NOSE: Clear with pink turbinates. THROAT: No erythema or exudates. NECK: No masses, no JVD. CHEST: No chest wall deformity. LUNGS: Equal air entry with no crackles, wheeze, rhonchi or dullness. CVS: S1 and S2 normal with no audible murmur, regular rhythm. ABDOMEN: No hepatosplenomegaly, normal bowel sounds, no guarding or rigidity. SPINE: No scoliosis or deformity SKIN: No rashes CENTRAL NERVOUS SYSTEM: No focal deficits, tone is normal in all 4 extremities. EXTREMITIES: There is no peripheral edema. No clubbing, no cyanosis. Peripheral pulses are intact. - Labs CBC & Chem 7: 11/01/23 01:13 11/01/23 01:13 Assessment and Plan Assessment: Acute exacerbation of severe oxygen dependent chronic obstructive pulmonary disease. Chest x-ray reveals no acute process Chronic hypoxic respiratory failure maintained on oxygen at 2 L/min per nasal cannula in the outpatient setting Former smoker of greater than 30 years, quit several years ago History of tachycardia, Toprol added to Cardizem, improved Obesity Hypertension Hyperlipidemia History of anxiety History of marijuana use Plan: The patient was seen and evaluated Medications reviewed Tachycardia improved with the addition of Toprol Cleared for discharge once cleared by cardiology Echocardiogram pending Continue her home Symbicort, Singulair, albuterol Complete a prednisone taper Continue home oxygen Follow-up in our office in 1 week This patient was seen independently by the pulmonary nurse practitioner addressing pulmonary issues I have personally seen and examined the patient, performed the documentation and the assessment and plan as written. Number of minutes spent on the visit: 23.
--- NOTE | 2023-11-03 12:22 | P.PN ---
Subjective Progress Note Date: 11/03/23 The patient is a 63-year-old female who follows in the office with Dr. Ghotra. Cardiology was consulted for sinus tachycardia. After detailed discussion with the patient she had abruptly discontinued her Cardizem at home, and then proceeded to the emergency room when she had shortness of breath associated with her elevated heart rates. Her Cardizem has since been resumed and she was started on oral beta-bruna yesterday. She is very concerned about being on beta-blockers with her history of COPD. She states her breathing is much better and her heart rates have been controlled since she has been in the hospital. GENERAL: Well-appearing, well-nourished and in no acute distress. NECK: Supple without JVD or thyromegaly. LUNGS: Breath sounds diminished to auscultation bilaterally. Respiration equal and unlabored. No wheezes, rales or rhonchi. HEART: Regular rate and rhythm without murmurs, rubs or gallops. S1 and S2 heard. EXTREMITIES: Normal range of motion, no edema. No clubbing or cyanosis. Peripheral pulses intact and strong. TELEMETRY: Sinus rhythm overnight IMPRESSION: Sinus tachycardia COPD exacerbation Hypertension Hyperlipidemia PLAN: Patient instructed to not abruptly discontinue calcium channel bruna Switch beta-bruna to metoprolol succinate with history of chronic lung disease Awaiting echocardiogram results Consider discharge based upon testing I am dictating on behalf of Dr Romeo Euceda's history/physical and assessment/plan. Objective - Vital Signs Vital signs: Vital Signs Temp 97.6 F 11/03/23 07:00 Pulse 78 11/03/23 07:00 Resp 17 11/03/23 07:00 BP 123/74 11/03/23 07:00 Pulse Ox 97 11/03/23 07:00 FiO2 Intake & Output 11/02/23 11/03/23 11/03/23 18:59 06:59 18:59 Intake Total 236 Balance 236 Intake: Oral 236 Other: # Voids 1 2 - Labs CBC & Chem 7: 11/01/23 01:13 11/01/23 01:13
--- NOTE | 2023-11-03 13:07 | CA ---
Transthoracic Echo Report Name: [place] Age: 63 Gender: F : 1960 Exam Date: 11/02/2023 12:55 Exam Location: [facility] Ht (in): 63 Wt (lb): 222 Ordering Physician: Lisette Rowe Attending/Referring Phys: [id number], [place] [employer] Decorator And Designer Padmini Waller RDCS Procedure CPT: Indications: LVF Cardiac Hx: Technical Quality: Fair Contrast 1: Total Dose (mL): Contrast 2: Total Dose (mL): MEASUREMENTS (Male / Female) Normal Values 2D ECHO LV Diastolic Volume MOD BP 80.9 cm??? 67 - 155 / 56 - 104 cm??? LV Systolic Volume MOD BP 26.4 cm??? 22 - 58 / 19 - 49 cm??? LV Ejection Fraction MOD BP 67.4 % >= 55 % LV Cardiac Index MOD BP 2263.0 cm???/min???m??? LV Diastolic Volume MOD 4C 79.3 cm??? LV Systolic Volume MOD 4C 26.5 cm??? LV Ejection Fraction MOD 4C 66.6 % LV Cardiac Index MOD 4C 2192.6 cm???/min???m??? LV Diastolic Length 4C 8.3 cm LV Systolic Length 4C 6.7 cm LV Diastolic Volume MOD 2C 81.3 cm??? LV Systolic Volume MOD 2C 26.0 cm??? LV Ejection Fraction MOD 2C 68.0 % LV Cardiac Index MOD 2C 2294.0 cm???/min???m??? LV Diastolic Length 2C 8.4 cm LV Systolic Length 2C 6.7 cm DOPPLER AV Peak Velocity 141.6 cm/s AV Peak Gradient 8.0 mmHg AV Mean Velocity 95.6 cm/s AV Mean Gradient 4.2 mmHg AV Velocity Time Integral 25.8 cm LVOT Peak Velocity 137.5 cm/s LVOT Peak Gradient 7.6 mmHg LVOT Velocity Time Integral 22.8 cm Mitral E Point Velocity 82.0 cm/s Mitral A Point Velocity 101.6 cm/s Mitral E to A Ratio 0.8 MV Deceleration Time 139.1 ms MV E' Velocity 6.8 cm/s Mitral E to MV E' Ratio 12.0 FINDINGS Left Ventricle Left ventricular ejection fraction is estimated at 60-65 %. Left ventricular cavity size normal. Left ventricular wall thickness normal. No obvious regional wall motion abnormalities. Grade 1 diastolic dysfunction. Right Ventricle Normal right ventricular size and function. Unable to estimate the right ventricular systolic pressure. Right Atrium Normal right atrial size. Left Atrium Normal left atrial size. Mitral Valve Structurally normal mitral valve. No mitral stenosis, regurgitation or prolapse. Aortic Valve Aortic valve not well visualized. No aortic valve stenosis or regurgitation. Tricuspid Valve Structurally normal tricuspid valve. No tricuspid stenosis. No tricuspid regurgitation. Pulmonic Valve Pulmonic valve not well visualized. Pericardium No pericardial effusion. Aorta Aortic root and proximal ascending aorta not well visualized. CONCLUSIONS Preserved LV systolic function Normal RV size and function Previewed by: Dr. Romeo Euceda MD (Electronically Signed) Final Date: 03 November 2023 13:07
--- NOTE | 2023-11-03 13:17 | P.DS ---
Providers Date of admission: 11/01/23 05:26 Expected date of discharge: 11/03/23 Attending physician: Wan Franco Consults: 11/01/23 10:34 Consult Physician Routine Consulting Provider: Tomás Guadarrama Consult Reason/Comments: COPD exacerbation Do you want consulting provider notified?: Yes 11/02/23 08:15 Consult Physician Routine Consulting Provider: Isra Ghotra Consult Reason/Comments: Tachycardia Do you want consulting provider notified?: Yes Primary care physician: Chyna Harvey Hospital Course: Discharge diagnoses; Acute COPD exacerbation Chronic hypoxic respiratory failure Hypertension Hyperlipidemia Sinus tachycardia Hospital course; patient is a 63-year-old lady with past medical history significant for COPD, hypertension was brought to the ER for for worsening shortness of breath for the last week. Patient stated that she normally uses 2 L of oxygen at home but has been feeling more short of breath lately. Patient stated that she gets short of breath on exertion. Not able to carry out any activity without getting short of breath. Denies any chest pain. There is no complaint of cough. Patient denies any palpitations. There is no complaint of orthopnea or PND. Patient denies any fever or chills. Because of worsening shortness of breath, patient came to the ER Initial lab work done in the ER showed WBC 10.1, hemoglobin 12.9, platelet count 420, D-dimer 0.40, sodium 134, potassium 4.7, BUN 22, creatinine 0.73, glucose 124, AST 30, ALT 18, troponin 0.012 Influenza A not detected Influenza B not detected RSV not detected COVID-19 not detected EKG done in the ER showed heart rate of 130, no ST segment elevation or depression seen, no T-wave inversions seen. Chest x-ray done in the ER no acute pulmonary process Patient admitted to internal medicine service 11/01. Patient seen and examined. States breathing is improved. Gets short of breath on exertion. Vital signs stable 11/02. Patient seen and examined. Patient was seen by pulmonology, they recommended discharging patient on tapering dose of prednisone. Cardiology recommended adding Toprol to Cardizem. Patient being discharged stable condition PHYSICAL EXAMINATION: GENERAL: The patient is alert and oriented x3, not in any acute distress. Well developed, well nourished. HEENT: Pupils are round and equally reacting to light. EOMI. No scleral icterus. No conjunctival pallor. Normocephalic, atraumatic. No pharyngeal erythema. No thyromegaly. CARDIOVASCULAR: S1 and S2 present. No murmurs, rubs, or gallops. PULMONARY: Chest is clear to auscultation, no wheezing or crackles. ABDOMEN: Soft, nontender, nondistended, normoactive bowel sounds. No palpable organomegaly. MUSCULOSKELETAL: No joint swelling or deformity. EXTREMITIES: No cyanosis, clubbing, or pedal edema. NEUROLOGICAL: Gross neurological examination did not reveal any focal deficits. SKIN: No rashes. Dictation was produced using [employer] dictation software. please excuse any grammatical, word or spelling errors. Patient Condition at Discharge: Good Plan - Discharge Summary New Discharge Prescriptions: New Metoprolol Succinate (ER) [Toprol XL] 25 mg PO DAILY 30 Days #30 tab predniSONE 10 mg PO DAILY 8 Days #20 tab Continue Montelukast [Singulair] 10 mg PO HS Diltiazem Cd [Cardizem CD] 240 mg PO DAILY Nitroglycerin Sl Tabs [Nitrostat] 0.4 mg SUBLINGUAL Q5M PRN PRN Reason: Chest Pain Furosemide [Lasix] 40 mg PO DAILY lisinopriL [Prinivil] 20 mg PO DAILY Atorvastatin [Lipitor] 20 mg PO DAILY Budesonide/Formoterol Fumarate [Symbicort 160-4.5 Mcg Inhaler] 2 puff INHALATION RT-BID Ergocalciferol [Vitamin D2 (1250 Mcg = 35837 Iu)] 1,250 mcg PO MO Potassium Chloride [Klor-Con M10] 10 meq PO DAILY Albuterol Sulfate [Ventolin HFA] 2 puff INHALATION RT-Q6H PRN PRN Reason: Shortness Of Breath Discharge Medication List Montelukast [Singulair] 10 mg PO HS 12/14/15 [History] Diltiazem Cd [Cardizem CD] 240 mg PO DAILY 12/15/15 [History] lisinopriL [Prinivil] 20 mg PO DAILY 10/18/22 [History] Atorvastatin [Lipitor] 20 mg PO DAILY 12/31/22 [History] Budesonide/Formoterol Fumarate [Symbicort 160-4.5 Mcg Inhaler] 2 puff INHALATION RT-BID 12/31/22 [History] Ergocalciferol [Vitamin D2 (1250 Mcg = 29252 Iu)] 1,250 mcg PO MO 12/31/22 [History] Albuterol Sulfate [Ventolin HFA] 2 puff INHALATION RT-Q6H PRN 11/01/23 [History] Furosemide [Lasix] 40 mg PO DAILY 11/01/23 [History] Nitroglycerin Sl Tabs [Nitrostat] 0.4 mg SUBLINGUAL Q5M PRN 11/01/23 [History] Potassium Chloride [Klor-Con M10] 10 meq PO DAILY 11/01/23 [History] Metoprolol Succinate (ER) [Toprol XL] 25 mg PO DAILY 30 Days #30 tab 11/03/23 [Rx] predniSONE 10 mg PO DAILY 8 Days #20 tab 11/03/23 [Rx] Follow up Appointment(s)/Referral(s): None,Stated [REFERRING] - 1-2 days Isra Ghotra DO [STAFF PHYSICIAN] - 1 Week Tomás Guadarrama MD [STAFF PHYSICIAN] - 1 Week Discharge Disposition: HOME SELF-CARE
[2023-11-03 14:59] VITALS: BP 117/75; PULSE 82; RESP 18; TEMP 98.1
[2023-11-05] MEDS ORDERED: ERGOCALCIFEROL 1,250 MCG (50,000 IU) CAPSULE PO SCH (09:00)
== END 2023-11-03 15:04 | disposition home or self-care (01) ==
LOC: EC 00:34 → 6NMEDSUR 05:26
PROVIDERS: ADMIT Hospitalist; ATTEND Hospitalist
DX: J44.1 Chronic obstructive pulmonary disease with (acute) exacerbation (principal); J96.11 Chronic respiratory failure with hypoxia; R00.0 Tachycardia, unspecified; T46.1X6A Underdosing of calcium-channel blockers, initial encounter; Z91.128 Patient's intentional underdosing of medication regimen for other reason; I08.8 Other rheumatic multiple valve diseases; I11.9 Hypertensive heart disease without heart failure; J44.89 Other specified chronic obstructive pulmonary disease; E78.5 Hyperlipidemia, unspecified; E66.9 Obesity, unspecified; Z68.39 Body mass index [BMI] 39.0-39.9, adult; F41.9 Anxiety disorder, unspecified; G89.29 Other chronic pain; Z99.81 Dependence on supplemental oxygen; Z79.51 Long term (current) use of inhaled steroids; Z79.899 Other long term (current) drug therapy; Z88.1 Allergy status to other antibiotic agents; Z88.2 Allergy status to sulfonamides; Z88.5 Allergy status to narcotic agent; Z88.8 Allergy status to other drugs, medicaments and biological substances; Z87.891 Personal history of nicotine dependence; Z11.52 Encounter for screening for COVID-19; Z11.59 Encounter for screening for other viral diseases
CPT/HCPCS: 96376 ×2; 96374; 99285; 36415; 94640 ×4; 94760; 93005; 93306; 85379; 83880; 80053; 84443; 83605; 84484; 85025; 85610; 85730; 87636; 71046; G0378 ×3; J7512 ×3; J2919 ×2

== ENCOUNTER → 2023-11-09 | Outpatient (CLI) | payer OTHER ==
--- NOTE | 2023-11-09 11:30 | MM ---
Reason for Exam: Additional evaluation requested from prior study. Last mammogram was performed 1 year(s) and 1 month(s) ago. Patient History: Menarche at age 16. First Full-Term at age 21. Postmenopausal. Patient has history of breast feeding. 11/08/2022, Benign US biopsy breast VAD RT on the right side. Risk Values: Ying 5 year model risk: 1.5%. NCI Lifetime model risk: 6.5%. Prior Study Comparison: 10/16/2022 Bilateral MG 3D screening mammo w/cad, [facility]. 10/25/2022 Right US breast workup limited RT, [facility]. 10/25/2022 Right MG 3D work up w/cad RT, [facility]. 11/08/2022 Right MG diagnostic mammo RT wo CAD, [facility]. Tissue Density: There are scattered areas of fibroglandular density. Findings: Analyzed By CAD. Unchanged nodularity right upper quadrant with microclip indicating recent biopsy for benign fibroadenoma. No significant change from prior exam. Overall Assessment: Benign, BI-RAD 2 Management: Screening Mammogram of both breasts in 1 year. Results were given to the patient verbally at the time of exam. Patient should continue monthly self-breast exams. A clinical breast exam by your physician is recommended on an annual basis. This exam should not preclude additional follow-up of suspicious palpable abnormalities. Note on Ying scores and lifetime risk: 1. A Ying score greater than 3% is considered moderate risk. If this is the case, consider specialist referral to assess eligibility for a risk reducing agent. 2. If overall lifetime risk for the development of breast cancer is 20% or higher, the patient may qualify for future screening with alternating mammogram and breast MRI. Electronically signed and approved by: Neetu Barrett M.D. Radiologist
== END | disposition home or self-care (01) ==
LOC: RADUSWWP 08:42
PROVIDERS: ATTEND Family Medicine
DX: R92.323 Mammographic fibroglandular density, bilateral breasts (principal); Z78.0 Asymptomatic menopausal state
CPT/HCPCS: 77066; G0279; 77062

== ENCOUNTER → 2024-03-06 | Outpatient (CLI) | payer OTHER ==
[2024-03-06 15:51] LABS: HCT 45.5 % (37.2-46.3); HGB 13.9 g/dL (12.0-15.0); MCH 25.1 pg (27.0-32.0); MCHC 30.5 g/dL (32.0-37.0); MCV 82.3 FL (80.0-97.0); Mean Platelet Volume 10.1 FL (9.5-12.2); NRBC Per 100 WBC 0 X 10*3/uL (0.00-0.01); Platelet Count 434 X 10*3/uL (140-440); RBC 5.53 X 10*6/uL (4.10-5.20); WBC 11.27 X 10*3/uL (4.50-10.00)
[2024-03-06 16:33] LABS: ALT 22 U/L (8-44); AST 27 U/L (13-35); Albumin/Globulin Ratio 1.82 Ratio (1.60-3.17); Alkaline Phosphatase 95 U/L (41-126); BUN/Creat Ratio 14.71 Ratio (12.00-20.00); Blood Urea Nitrogen 10.3 mg/dL (9.0-27.0); Calcium 8.8 mg/dL (8.7-10.3); Carbon Dioxide 23.3 mmol/L (21.6-31.8); Chloride 106 mmol/L (96-109); Globulin 2.2 g/dL (1.6-3.3); Glucose 100 mg/dL (70-110); LDL Cholesterol,Calculated 142.7 mg/dL (0.0-131.0); Potassium 4.6 mmol/L (3.5-5.5); Sodium 141 mmol/L (135-145); Total Bilirubin 0.2 mg/dL (0.3-1.2); Total Protein 6.2 g/dL (6.2-8.2)
== END | disposition home or self-care (01) ==
LOC: LABWHC1 09:02
PROVIDERS: ATTEND Family Medicine
DX: I10 Essential (primary) hypertension (principal); J44.9 Chronic obstructive pulmonary disease, unspecified; R63.5 Abnormal weight gain
CPT/HCPCS: 36415; 80053; 80061; 82024; 82306; 82533; 82607; 82746; 84443; 85027

== ENCOUNTER → 2024-04-21 | Outpatient (CLI) | payer OTHER ==
--- NOTE | 2024-04-21 12:07 | CT ---
EXAMINATION TYPE: CT chest w con CT DLP: 653.8 mGycm, Automated exposure control for dose reduction was used. DATE OF EXAM: 04/21/2024 11:36 AM COMPARISON: CT low-dose lung for 09/10/2023, 05/31/2017, CT chest 01/10/2021 CLINICAL INDICATION:Female, 64 years old with history of R91.8 ABN LUNG FINDINGS; PHH, ABDNORMAL LUNG FINDING, PT STATES SHES BEEN SICK HX OF EMPHYSEMA, COPD TECHNIQUE: Multiple axial images were obtained through the chest following the administration of 100 cc of Isovue 300. . Coronal and sagittal reformats reviewed. FINDINGS: LUNGS/ PLEURA: No pleural effusion, pneumothorax, focal consolidation. Mild centrilobular emphysemato us changes. Linear scarring within the right middle lobe and lingula. Previously seen density within the lingula demonstrates a stable linear scarring-like appearance. Stable left lateral upper lobe 7 m m calcified granuloma. There is some adjacent pleural based 1 to 2 mm nodular density. Punctate calci fied granuloma within the right upper lobe. Similar elongated 7.5 mm density along the posterior left upper lobe abutting the major fissure. Favored to represent an intrafissural lymph node. No new or e nlarging pulmonary nodules. AIRWAY: Patent and unremarkable.. HEART: Size within normal limits.No pericardial effusion. MEDIASTINUM: No evidence of adenopathy. Calcified mediastinal subcarinal and left hilar lymph nodes. VASCULATURE: No aortic aneurysm. MUSCULOSKELETAL: No acute osseous abnormalities SOFT TISSUES/LYMPH NODES: Unremarkable. LOWER NECK: No significant findings. UPPER ABDOMEN: Diffuse low-attenuation to the liver parenchyma. IMPRESSION: 1. Stable pulmonary nodularity and scarring dating back to 11/21/2020 and considered benign. No new or enlarging pulmonary nodules. 2. Mild COPD changes. 3. Sequelae of prior granulomatous disease. 4. Hepatic steatosis. [facility], , 04/21/2024 12:05 PM
== END | disposition home or self-care (01) ==
LOC: RADCTMAIN 11:04
PROVIDERS: ATTEND Internal Medicine
DX: R91.8 Other nonspecific abnormal finding of lung field (principal); J44.9 Chronic obstructive pulmonary disease, unspecified; J43.9 Emphysema, unspecified; K76.0 Fatty (change of) liver, not elsewhere classified; J84.10 Pulmonary fibrosis, unspecified; Z87.59 Personal history of other complications of pregnancy, childbirth and the puerperium
CPT/HCPCS: 71260; Q9967

== ENCOUNTER 2024-08-27 08:57 | Day surgery (SDC) | payer OTHER ==
[2024-08-22 14:30] VITALS: BMI 41.1
[~2024-08-27 08:57] MED LIST changes: -ALPRAZolam 0.25 MG TAB PO PRN; -ALPRAZolam 0.5 MG TAB PO PRN; -ASPIRIN 325 MG TAB PO ONE; -HEPARIN SODIUM,PORCINE (1 ML) 2,500 UNIT in SODIUM CHLORIDE 0.9% 250 ML IRRIGATION PRN; -HEPARIN SODIUM,PORCINE 10,000 UNIT in SODIUM CHLORIDE 0.9% 1,000 ML IRRIGATION PRN; +LACTATED RINGERS 1,000 ML IV SCH; -NITROGLYCERIN SL TABS 0.4 MG TAB SUBLINGUAL PRN; -SODIUM CHLORIDE 0.9% 1,000 ML in EMPTY BAG 1 BAG IV SCH; +TETRACAINE 0.5% OPHTH (PF) DROPS 4 ML BTL OP PRN
[2024-08-27] MEDS: IV FLUID CONTINUATION 1,000 ML IV ONE (09:44)
[2024-08-27] MEDS: CYCLOPENTOLATE 1% OPHTH SOLN 2 ML BTL OP PRN (09:55)
[2024-08-27] MEDS: PHENYLEPHRINE 2.5% OPHTH DRP 2ML OP PRN (09:58)
[2024-08-27 10:00] VITALS: TEMP 98.4
[2024-08-27] MEDS ORDERED: MIDAZOLAM 2 MG/2 ML VIAL ONE (11:20)
[2024-08-27] MEDS ORDERED: fentaNYL (PF) 50 MCG/ML 2 ML AMP ONE (11:20)
[2024-08-27] MEDS: BALANCED SALT IRRIG SOLN COMB2 15 ML IRRIG.SOLN INTRAOCULA ONE (11:36)
[2024-08-27] MEDS: HYALURONATE SODIUM INTRAOCULAR 1 EACH SYRINGE (12MG/ML) INTRAOCULA ONE (11:36)
[2024-08-27] MEDS: TIMOLOL 0.5% OPHTH DROPS 5 ML BTL OP PRN (11:36)
[2024-08-27] MEDS: MOXIFLOXACIN HCL 0.5% DROPS 3 ML BTL OP PRN (11:36)
[2024-08-27] MEDS: LIDOCAINE 1% (PF) 10MG/ML VIAL SQ ONE (11:37)
[2024-08-27] MEDS: EPINEPHrine (PF) 0.3 ML in BALANCED SALT IRRIG SOLN COMB2 500 ML IRRIGATION ONE (11:38)
--- NOTE | 2024-08-27 11:51 | P.OP ---
Date of Procedure: 08/27/24 Preoperative Diagnosis: NS & CS Postoperative Diagnosis: same Procedure(s) Performed: PIOL, OD Implants: [id number] 20.50 Anesthesia: MAC Surgeon: Rashard Angel Pathology: none sent Condition: stable Disposition: same day Indications for Procedure: blurry vision Operative Findings: no complications
[2024-08-27 12:09] VITALS: BP 155/88; PULSE 80; RESP 16
--- NOTE | 2024-08-27 20:33 | OP ---
OPERATIVE REPORT DATE OF SERVICE : 08/27/2024 PREOPERATIVE DIAGNOSES: Nuclear sclerosis and cortical sclerosis. POSTOPERATIVE DIAGNOSES: Nuclear sclerosis and cortical sclerosis. OPERATION: Phacoemulsification of cataract and interocular lens implant, right eye. ESTIMATED BLOOD LOSS: Zero. SPECIMEN TAKEN: None. NARRATIVE: After obtaining the appropriate consent, the patient was brought to the operating room where the patient was placed under cardiac monitoring and prepped and draped in the usual sterile manner. At the 11 o'clock position, a 15-degree super sharp blade was used to create a paracentesis followed by instillation of 1% Xylocaine MPF 50:50 mix with BSS into the anterior chamber. This was followed by Amvisc viscoelastic to stabilize the anterior chamber. At the 9 o'clock position a self-sealing corneal flap incision was created using 2.8 mm maría keratome. A cystotome was used to initiate a continuous tear capsulorrhexis which was completed with the Utrata forceps. A Binkhorst cannula was used to hydrodissect the lens nucleus followed by hydrodelineation. Phacoemulsification of the lens was performed utilizing phaco chop in 8.91 seconds at 17.5 % power. The remaining cortical material was removed using the irrigation aspiration mode followed by additional 1% Xylocaine MPF into the anterior chamber followed by viscoelastic to stabilize the capsular bag. A Keny and Keny, DCB00 20.5 diopter posterior chamber lens was placed into the capsular bag without difficulty. The remaining viscoelastic material was removed from the anterior chamber with the irrigation/aspiration. Balanced salt solution was used to normalize the intraocular pressure. The incision was checked for watertight integrity. The patient then received 2 drops of 0.5% timolol followed by 2 drops Vigamox, was lightly patched and shielded in the usual manner. There were no complications from the procedure. The patient tolerated the procedure well and was returned to recovery in good condition. MMODL / IJN: [id number] /
== END 2024-08-27 12:24 | disposition home or self-care (01) ==
LOC: OR 08:57
PROVIDERS: ATTEND Ophthalmology
DX: H25.11 Age-related nuclear cataract, right eye (principal); H25.011 Cortical age-related cataract, right eye; H25.012 Cortical age-related cataract, left eye; H25.12 Age-related nuclear cataract, left eye; H35.341 Macular cyst, hole, or pseudohole, right eye; H35.342 Macular cyst, hole, or pseudohole, left eye; H47.393 Other disorders of optic disc, bilateral; H52.4 Presbyopia; I10 Essential (primary) hypertension; J44.9 Chronic obstructive pulmonary disease, unspecified; Z79.899 Other long term (current) drug therapy
CPT/HCPCS: 66984; V2632; J2250; J0171; J3010; J2003

== ENCOUNTER 2024-10-15 08:43 | Day surgery (SDC) | payer OTHER ==
[2024-10-10 15:36] VITALS: BMI 36.6
[~2024-10-15 08:43] MED LIST changes: -LACTATED RINGERS 1,000 ML IV SCH
[2024-10-15] MEDS: CYCLOPENTOLATE 1% OPHTH SOLN 2 ML BTL OP PRN (09:40)
[2024-10-15] MEDS: PHENYLEPHRINE 2.5% OPHTH DRP 2ML OP PRN (09:43)
[2024-10-15 09:49] VITALS: TEMP 97
[2024-10-15] MEDS: IV FLUID CONTINUATION 1,000 ML IV ONE (09:52)
[2024-10-15] MEDS: LACTATED RINGERS 1,000 ML IV SCH (09:57)
[2024-10-15] MEDS: MOXIFLOXACIN HCL 0.5% DROPS 3 ML BTL OP PRN (11:06)
[2024-10-15] MEDS ORDERED: fentaNYL (PF) 50 MCG/ML 2 ML AMP ONE (11:06)
[2024-10-15] MEDS: TIMOLOL 0.5% OPHTH DROPS 5 ML BTL OP PRN (11:06)
[2024-10-15] MEDS: EPINEPHrine (PF) 0.3 ML in BALANCED SALT IRRIG SOLN COMB2 500 ML IRRIGATION ONE (11:16)
[2024-10-15] MEDS: HYALURONATE SODIUM INTRAOCULAR 1 EACH SYRINGE (12MG/ML) INTRAOCULA ONE (11:25)
[2024-10-15] MEDS: BALANCED SALT IRRIG SOLN COMB2 15 ML IRRIG.SOLN IRRIGATION ONE (11:25)
[2024-10-15] MEDS: LIDOCAINE 1% (PF) 10MG/ML VIAL SQ ONE (11:25)
--- NOTE | 2024-10-15 11:36 | P.OP ---
Date of Procedure: 10/15/24 Preoperative Diagnosis: NS & cS & PSC Postoperative Diagnosis: same Procedure(s) Performed: PIOL< OS Implants: [id number] Anesthesia: MAC Surgeon: Rashard Angel Pathology: none sent Condition: stable Disposition: same day Indications for Procedure: blurry vision Operative Findings: no complications
[2024-10-15 11:49] VITALS: RESP 16
[2024-10-15 11:58] VITALS: BP 153/94; PULSE 81
--- NOTE | 2024-10-16 00:09 | OP ---
OPERATIVE REPORT DATE OF SERVICE : 10/15/2024 PREOPERATIVE DIAGNOSES: Nuclear sclerosis, cortical sclerosis. POSTOPERATIVE DIAGNOSES: Nuclear sclerosis, cortical sclerosis. OPERATION: Phacoemulsification of cataract and intraocular lens implant of the left eye. ESTIMATED BLOOD LOSS: Zero. SPECIMEN TAKEN: None. NARRATIVE: After obtaining the appropriate consent, the patient was brought to the operating room where the patient was placed under cardiac monitoring and prepped and draped in the usual sterile manner. At the 5 o'clock position, a 15-degree super sharp blade was used to create a paracentesis followed by instillation of 1% Xylocaine MPF 50:50 mix with BSS into the anterior chamber. This was followed by Amvisc viscoelastic to stabilize the anterior chamber. At the 3 o'clock position a self-sealing corneal flap incision was created using 2.8 mm maría keratome. A cystotome was used to initiate a continuous tear capsulorrhexis which was completed with the Utrata forceps. A Binkhorst cannula was used to hydrodissect the lens nucleus followed by hydrodelineation. Phacoemulsification of the lens was performed utilizing phacochop in 8.64 seconds at 15.5% power. The remaining cortical material was removed using the irrigation aspiration mode followed by additional 1% Xylocaine MPF into the anterior chamber followed by viscoelastic to stabilize the capsular bag. A Keny and Keny, DCB00 21.5 diopter posterior chamber lens was placed into the capsular bag without difficulty. The remaining viscoelastic material was removed from the anterior chamber with the irrigation/aspiration. Balanced salt solution was used to normalize the intraocular pressure. The incision was checked for watertight integrity. The patient then received 2 drops of 0.5% timolol followed by 2 drops Vigamox, was lightly patched and shielded in the usual manner. There were no complications from the procedure. The patient tolerated the procedure well and was returned to recovery in good condition. MMODL / IJN: [id number] /
== END 2024-10-15 12:21 | disposition home or self-care (01) ==
LOC: OR 08:43
PROVIDERS: ATTEND Ophthalmology
DX: H25.12 Age-related nuclear cataract, left eye (principal); H25.012 Cortical age-related cataract, left eye; I10 Essential (primary) hypertension; J44.9 Chronic obstructive pulmonary disease, unspecified; M10.9 Gout, unspecified; F41.9 Anxiety disorder, unspecified; H35.342 Macular cyst, hole, or pseudohole, left eye; H47.393 Other disorders of optic disc, bilateral; H52.4 Presbyopia; Z96.1 Presence of intraocular lens; H35.341 Macular cyst, hole, or pseudohole, right eye; Z79.51 Long term (current) use of inhaled steroids; Z79.899 Other long term (current) drug therapy; Z99.81 Dependence on supplemental oxygen; Z88.1 Allergy status to other antibiotic agents; Z88.5 Allergy status to narcotic agent; Z88.8 Allergy status to other drugs, medicaments and biological substances
CPT/HCPCS: 66984; V2632; J0171; J3010; J2003